=== PATIENT | female | born 1950 | race Caucasian/White ===

== ENCOUNTER 2019-10-16 11:22 | Emergency (ER) | payer OTHER ==
[2019-10-16 12:53] LABS: Albumin 3.8 g/dL (3.4-5.0); Bilirubin Direct 0.1 mg/dL (0-0.2); Bilirubin Total 0.3 mg/dL (0.2-1.0); Potassium 3.7 mmol/L (3.5-5.1); Protein, Total 8.1 g/dL (6.4-8.2)
[2019-10-16 13:00] LABS: Basophils % 1.2 % (0-1.3); Hematocrit 39.1 % (36.0-45.0); Lymphocytes % 15.9 % (15.3-44.8); MPV 7.7 fL (7.6-11.3); RBC Red Blood Cell Count 4.57 M/uL (3.86-4.86)
[2019-10-16 13:11] LABS: Urine Amorphous Sediment 1+ /HPF (NONE SEEN); Urine Bacteria 20-50 /HPF (<20); Urine Culture Reflex Order REFLEXED
[2019-10-16 13:12] LABS: Urine Blood 2+ (NEG); Urine Glucose NEGATIVE (NEG); Urine Protein NEGATIVE (NEG); Urine pH 5.5 (5.0-7.0)
--- NOTE | 2019-10-16 13:28 | RAD REPORT ---
EXAM DESCRIPTION: CT - Chest Abdomen Pelvis W Cont - 10/16/2019 1:15 pm CLINICAL HISTORY: Chest and abdomen pain. smoker, weight loss, sob COMPARISON: No comparisons TECHNIQUE: Approximately 100 mL nonionic IV contrast was administered to the patient. All CT scans are performed using dose optimization technique as appropriate and may include automated exposure control or mA/KV adjustment according to patient size. FINDINGS: Multiple spiculated nodules are present bilaterally throughout the lungs, likely metastati c in etiology. Emphysematous changes are present. The largest nodule noted is in the left base measur ing 21 x 18 mm.No pleural or pericardial effusion.No intrathoracic adenopathy. The liver contains several low-density lesions, the largest in the anterior right lobe liver measurin g 14 mm, most likely representing liver metastasis. No intra or extrahepatic biliary tree dilatation. The spleen, pancreas, adrenal glands and kidneys are within normal limits. Irregular circumferential thickening is seen involving measuring up to 15 mm in wall thickness. This has the appearance of an apple-core lesion. 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 The appendix is no t identified as a discrete structure, however, no secondary findings of appendicitis are identified. Pelvic adenopathy is likely present adjacent to the colonic lesion, measuring up to 18 mm in short axis. Moderate lumbar degenerative changes. IMPRESSION: Apple core type lesion suspected involving the rectosigmoid colon most compatible with m alignancy.Followup colonoscopy assessment would be recommended. Hepatic and lung metastatic disease is suspected.
[2019-10-16 14:45] VITALS: TEMP 97.7; O2SAT 100
[2019-10-16 14:46] VITALS: BP 139/73
--- NOTE | 2019-10-16 21:29 | ER ---
Nurse's Notes [facility] Name: Jessa Aranda Age: 69 yrs Sex: Female : 1950 Arrival Date: 10/16/2019 Time: 11:29 Bed 24 Private MD: Diagnosis: Colon cancer, unspecified;Metastatic lesions of liver and lung Presentation: 10/15 11:43 Chief complaint: Patient states: "I started losing weight some time in early May. I ss can't gain wait, but I also haven't lost any more. Every time I do eat, I have a BM right after. I have a BM at least once an hour. It's not solid, but it isn't diarrhea either. The last 4-5 days I have not been able to sleep.". Coronavirus screen: Patient denies a cough. Patient denies shortness of breath or difficulty breathing. Patient denies measured and/or subjective temperature greater than 100.4F prior to today's visit. Patient denies travel on a cruise ship or to a country the [facility] currently lists as an affected area. Patient denies contact with known and/or suspected case of COVID-19. Ebola Screen: Patient denies exposure to infectious person. Patient denies travel to an Ebola-affected area in the 21 days before illness onset. Initial Sepsis Screen: Does the patient have a suspected source of infection? No. Patient's initial sepsis screen is negative. Initial Sepsis Screen: Does the patient meet any 2 criteria? No. Patient's initial sepsis screen is negative. Risk Assessment: Do you want to hurt yourself or someone else? Patient reports no desire to harm self or others. Onset of symptoms was May 2019. 11:43 Method Of Arrival: Ambulatory ss 11:43 Acuity: JAVON 3 ss Historical: - Allergies: 11:49 No Known Allergies; ss - Home Meds: 11:49 None [Active]; ss - PMHx: 11:49 None; ss - PSHx: 11:49 partial hysterectomy; ss - Immunization history:: Adult Immunizations up to date. - Social history:: Smoking status: Patient reports the use of cigarette tobacco products, smokes one pack cigarettes per day. - Family history:: not pertinent. - Hospitalizations: : No recent hospitalization is reported. Screenin:33 Abuse screen: Denies threats or abuse. Nutritional screening: No deficits noted. ah Tuberculosis screening: No symptoms or risk factors identified. Fall Risk None identified. Assessment: 12:03 General: Appears in no apparent distress. Behavior is calm, cooperative, appropriate ah for age. Pain: Denies pain. 12:03 Neuro: Level of Consciousness is awake, alert, obeys commands, Oriented to person, ah place, time, situation, Appropriate for age. 12:03 Cardiovascular: Denies chest pain, Heart tones S1 S2 present Capillary refill < 3 ah seconds Patient's skin is warm and dry. Pulses are palpable in right radial artery and left radial artery. Respiratory: Airway is patent Respiratory effort is even, unlabored, Respiratory pattern is regular, symmetrical. GI: Bowel sounds present X 4 quads. Abd is soft Abd is non tender X 4 quads Reports weight loss. Derm: Skin is intact, is healthy with good turgor, Skin is dry. 13:00 Reassessment: Patient and/or family updated on plan of care and expected duration. Pain ah level reassessed. Patient is alert, oriented x 3, equal unlabored respirations, skin warm/dry/pink. Awaiting resutls. No needs voiced. 14:10 Reassessment: Discharge instructions given at this time. Pt voiced understanding. Vital Signs: 11:43 BP 142 / 91; Pulse 96; Resp 16; Temp 98.3(TE); Pulse Ox 98% on R/A; Weight 37.01 kg ss (R); Pain 0/10; 12:28 BP 127 / 91; Pulse 76; Resp 16; Temp 97.7(O); Pulse Ox 100% on R/A; mh5 13:25 BP 139 / 73; Pulse 89; Resp 16; Temp 97.7(O); Pulse Ox 100% on R/A; mh5 ED Course: 11:29 Patient arrived in ED. mr 11:48 Triage completed. ss 11:49 Arm band placed on right wrist. ss 11:51 Osmin Gaines MD is Attending Physician. rn 12:01 Kayla Mercado, AIDA is Primary Nurse. 12:23 Initial lab(s) drawn, by nm, sent to lab. Urine collected: clean catch specimen, clear, mh5 Amount Voided: 240mL. Inserted saline lock: 20 gauge in right antecubital area, using aseptic technique. Blood collected. 12:24 Patient has correct armband on for positive identification. Placed in gown. Bed in low mh5 position. Call light in reach. Side rails up X 1. Warm blanket given. Pulse ox on. NIBP on. 12:25 Urine Microscopic Only Sent. 5 12:25 Basic Metabolic Panel Sent. [facility] 12:25 CBC with Diff [address]. [facility] 12:25 [address] [facility] 12:[address] [facility] 13:15 CT Chest, Abdomen, Pelvis - W/Contrast In Process Unspecified. EDDE 13:43 Mason Cleary MD is Referral Physician. rn 14:13 No provider procedures requiring assistance completed. IV discontinued, intact, bleeding controlled, No redness/swelling at site. Pressure dressing applied. Administered Medications: No medications were administered Outcome: 13:44 Discharge ordered by MD. rn 14:11 Discharged to home ambulatory. 14:11 Condition: good 14:11 Discharge instructions given to patient, Instructed on discharge instructions, follow up and referral plans. Demonstrated understanding of instructions, follow-up care. 14:13 Patient left the ED. Signatures: Dispatcher [employer] EDDE Eligio Wendi gonzales Osmin Gaines MD MD rn Smirch, Shelby, RN RN ss Martinez, Maria [facility] Kayla Mercado, RN RN Corrections: (The following items were deleted from the chart) 13:33 12:03 Neuro: Level of Consciousness is awake, alert, obeys commands, Oriented to person, place, time, situation, Appropriate for age
--- NOTE | 2019-10-16 21:29 | EDPHYS ---
Physician Documentation [facility] Name: Jessa Aranda Age: 69 yrs Sex: Female : 1950 Arrival Date: 10/16/2019 Time: 11:29 Bed 24 Private MD: ED Physician Osmin Gaines HPI: 10/15 12:55 This 69 yrs old Female presents to ER via Ambulatory with complaints of rn Weight loss,lack of sleep. 12:55 Reports weight loss over several months, not intentional, does eat, but frequent rn non-bloody bowel movements, no fever, no known cancer. + smoker, + intermittent sob. . 12:57 Onset: The symptoms/episode began/occurred 4 hour(s) ago. Severity of symptoms: At rn their worst the symptoms were mild in the emergency department the symptoms are unchanged. The patient has not experienced similar symptoms in the past. The patient has not recently seen a physician. Historical: - Allergies: 11:49 No Known Allergies; ss - Home Meds: 11:49 None [Active]; ss - PMHx: 11:49 None; ss - PSHx: 11:49 partial hysterectomy; ss - Immunization history:: Adult Immunizations up to date. - Social history:: Smoking status: Patient reports the use of cigarette tobacco products, smokes one pack cigarettes per day. - Family history:: not pertinent. - Hospitalizations: : No recent hospitalization is reported. ROS: 12:57 Constitutional: Negative for fever, chills, + weight loss Eyes: Negative for injury, rn pain, redness, and discharge, Cardiovascular: Negative for chest pain, palpitations, and edema, Respiratory: + sob Abdomen/GI: Negative for abdominal pain, nausea, vomiting, diarrhea, and constipation, : + non smelly vaginal discharge for 1 month, no itching or pain, no ulcers. MS/Extremity: Negative for injury and deformity, Skin: Negative for injury, rash, and discoloration, Neuro: Negative for headache, numbness, tingling, and seizure. Exam: 12:57 Constitutional: Thin female, cachectic Head/Face: Normocephalic, atraumatic. Eyes: rn Pupils equal round and reactive to light, extra-ocular motions intact. Lids and lashes normal. Conjunctiva and sclera are non-icteric and not injected. Cornea within normal limits. Periorbital areas with no swelling, redness, or edema. Cardiovascular: Regular rate and rhythm. No pulse deficits. Respiratory: No increased work of breathing, no retractions or nasal flaring. Abdomen/GI: soft, non-tender Skin: Warm, dry MS/ Extremity: Pulses equal, no cyanosis. Neurovascular intact. Full, normal range of motion. Equal circumference. Neuro: Awake and alert, GCS 15, oriented to person, place, time, and situation. Cranial nerves II-XII grossly intact. Motor strength 5/5 in all extremities. Sensory grossly intact. Cerebellar exam normal. Normal gait. Vital Signs: 11:43 BP 142 / 91; Pulse 96; Resp 16; Temp 98.3(TE); Pulse Ox 98% on R/A; Weight 37.01 kg ss (R); Pain 0/10; 12:28 BP 127 / 91; Pulse 76; Resp 16; Temp 97.7(O); Pulse Ox 100% on R/A; mh5 13:25 BP 139 / 73; Pulse 89; Resp 16; Temp 97.7(O); Pulse Ox 100% on R/A; mh5 MDM: 11:51 Patient medically screened. rn 13:41 Differential Diagnosis cancer, gastric cancer, colon cancer, lung cancer. Data rn reviewed: vital signs, nurses notes, lab test result(s), radiologic studies, CT scan, and as a result, I will discharge patient. Counseling: I had a detailed discussion with the patient and/or guardian regarding: the historical points, exam findings, and any diagnostic results supporting the discharge/admit diagnosis, lab results, radiology results, the need for outpatient follow up, to return to the emergency department if symptoms worsen or persist or if there are any questions or concerns that arise at home. Special discussion: I discussed with the patient/guardian in detail that at this point there is no indication for admission to the hospital. It is understood, however, that if the symptoms persist or worsen the patient needs to return immediately for re-evaluation. Based on the history and exam findings, there is no indication for further emergent testing or inpatient evaluation. I discussed with the patient/guardian the need to see the eeo officer for further evaluation of the symptoms. I discussed with the patient/guardian the need to see the outsole compressor/oncologist for further evaluation of the symptoms. I discussed with the patient/guardian the need to see the primary care provider for further evaluation of the symptoms. I discussed with the patient/guardian the need to see the asbestos abatement worker for further evaluation of the symptoms. ED course: Had discussion of CT findings with patient, most likely colon cancer, will need to f/u for tissue diagnosis and then with oncology for chemo recommendations. Stable. Had 2 family members with cancer and aware of outpt w/u process. . 10/15 12:00 Order name: Basic Metabolic Panel; Complete Time: : rn 10/15 12:00 Order name: CBC with Diff; Complete Time: : rn 10/15 12:00 Order name: Hepatic Function; Complete Time: : rn 10/15 12:00 Order name: Lipase; Complete Time: : rn 10/15 12:00 Order name: Urine Microscopic Only; Complete Time: : rn 10/15 12:33 Order name: Urine Dipstick--Ancillary (enter results); Complete Time: : pa 10/15 12:00 Order name: IV Saline Lock; Complete Time: 12: rn 10/15 12:00 Order name: Labs collected and sent; Complete Time: 12: rn 10/15 12:00 Order name: CT Chest, Abdomen, Pelvis - W/Contrast; Complete Time: : rn 10/15 12:00 Order name: Urine Dipstick-Ancillary (obtain specimen); Complete Time: 12: rn 10/15 13:13 Order name: Urine Culture EDMS Administered Medications: No medications were administered Disposition: 10/16/19 13:44 Discharged to Home. Impression: Colon cancer, unspecified, Metastatic lesions of liver and lung. - Condition is Stable. - Discharge Instructions: Colonoscopy, Lung Cancer, Colon Mass, Adult, Liver Cancer. - Medication Reconciliation Form, Thank You Letter, Antibiotic Education, Prescription Opioid Use form. - Follow up: Mason Cleary MD; When: As needed; Reason: Recheck today's complaints, Re-evaluation by your physician. - Problem is an ongoing problem. - Symptoms are unchanged. Signatures: Dispatcher [employer] EDMS Osmin Gaines MD MD rn Smirch, Shelby, RN RN ss Harris, Amy, RN RN Corrections: (The following items were deleted from the chart) 14:13 13:44 10/16/2019 13:44 Discharged to Home. Impression: Colon cancer, unspecified; ah Metastatic lesions of liver and lung. Condition is Stable. Forms are Medication Reconciliation Form, Thank You Letter, Antibiotic Education, Prescription Opioid Use. Follow up: Mason Cleary; When: As needed; Reason: Recheck today's complaints, Re-evaluation by your physician. Problem is an ongoing problem. Symptoms are unchanged. rn
== END 2019-10-16 14:13 | disposition home or self-care (01) ==
LOC: ER 11:22
DX: C78.7 Secondary malignant neoplasm of liver and intrahepatic bile duct (principal); C78.00 Secondary malignant neoplasm of unspecified lung; F17.210 Nicotine dependence, cigarettes, uncomplicated
CPT/HCPCS: 87088; 85025; 87086; 80048; 36415; 80076; 83690; 71260; 74177; Q9967; 81003; 81015; 99284

== ENCOUNTER 2020-02-08 11:41 | Observation (INO) | payer OTHER ==
--- OUTSIDE RECORDS SUMMARY | 2020-02-08 11:48 | XMS REPORT | Continuity of Care Document ---
:1950 Author Organization [facility] t Address [address] [place] [address] Care Team Providers Name Role Phone Dean Sanchez Attending Clinician Unavailable Sanchez, C Attending Clinician Unavailable Rice, P Attending Clinician Unavailable Rice, P Attending Clinician Unavailable Afuwape, O Attending Clinician Unavailable Afuwape, O Attending Clinician Unavailable Avila, J Attending Clinician Unavailable Avila, J Attending Clinician Unavailable Marck, P Attending Clinician Unavailable Marck, P Attending Clinician Unavailable Sanchez, C Admitting Clinician Unavailable Rice, P Admitting Clinician Unavailable Afuwape, O Admitting Clinician Unavailable Avila, J Admitting Clinician Unavailable Marck, P Admitting Clinician Unavailable Payers Payer Name Policy Type Policy Number Effective Date Expiration Date S ource Problems This patient has no known problems. Allergies, Adverse Reactions, Alerts Allergy Allergy Status Severity Reaction(s) Onset Inactive Treating Comm ents Source Name Type Date Date Clinician No Known DA Active U [facility] All[facility]ie 11-06 [place] s 00:00: d 00 [facility] Medications This patient has no known medications. Procedures This patient has no known procedures. Encounters Start End Encounter Admission Attending Care Care Encounter Source Date/Time Date/Time Type Type Clinicians Facility Department ID 2019-12-15 2020-01-17 Unknown 3 Sanchez, [place] [facility] R[id number] 13:13:00 11:03:00 [facility] [place] [facility] 2019-12-21 2019-12-21 Outpatient 3 Bethel Rice [facility] MRI [id number] St. 12:16:00 23:59:00 Rice, [facility] 2019-12-14 2019-12-14 Outpatient 3 Dwayne [facility] [id number] St. 10:15:00 23:59:00 Dwayne [facility] 2019-12-11 2019-12-11 Emergency 1 Catalina [facility] JACKIE [id number] St. 12:49:00 15:38:00 Afpenny [facility] 2019-12-11 2019-12-11 Emergency Afuwnanci [facility] JACKIE [id number] St. 12:49:00 12:49:00 [place] [id number] [facility] 2019-12-11 2019-12-11 Emergency 1 [place] [facility] JACKIE [id number] St. 12:29:00 12:48:00 [facility] 2019-12-08 2019-12-09 Inpatient 3 Tawanda Avila [facility] MED [id number] St. 07:35:00 21:01:00 [facility] 2019-12-08 2019-12-08 Inpatient 3 AvilaCapri ramosrick [facility] MED [id number] St. 07:35:00 07:35:00 Austin Tawanda 2019 917 [facility] 2019-11-29 2019-11-29 Outpatient 3 Dwayne [facility] IVR [id number] St. 07:46:00 23:59:00 Dwayne [facility] 2019-11-29 2019-11-29 Outpatient 3 Dwayne [facility] IVR [id number] St. 07:46:00 07:46:00 Dwayne [facility]2019 908 [facility] 2019-11-13 2019-11-13 Outpatient 3 Marck Acharya [facility] ENDO [id number] St. 07:56:00 12:24:00 Marck Acharya [facility] 2019-11-13 2019-11-13 Outpatient 3 Marck Acharya [facility] ENDO [id number] St. 07:56:00 07:56:00 Marck Acharya20 [id number] [facility] Results Test Description Test Time Test Comments Results Result Sour e Comments MRI Brain w/ + w/o 2019-12-21 Patient: ELOISA, Contrast 14:31:46 CHRISTIANA Date/Time12/21/2019 13:38 CDTReason for ExamC79.51ReportEXAM: MRI BRAIN WITH AND WITHOUT CONTRASTINDICATION: C79.51, history of colon cancerCOMPARISON: PET/CT dated December 14, 2019TECHNIQUE: Multiplanar, multisequence MR imaging of the brain was obtained with and without administration of intravenous contrast. IV contrast: 8 cc of MultiHanceFINDINGS:No restricted diffusion to suggest acute ischemia.There is an enhancing lesion within the posterior left frontal lobe measuring 1.3 x 1.3 x 1.2 cm with significant surrounding vasogenic edema and effacement of the sulci. No additional enhancing lesions are identified.No ventriculomegaly or midline shift is identified. The basal cisterns are patent. The posterior fossa and fourth ventricle are normal. No intracranial hemorrhage.Intracrania l flow voids are normal.The paranasal sinuses and mastoid air cells are clear. The skull base is intact. No calvarial lesions. The orbits and globes are unremarkable.IMPRESSIO N:1. Enhancing lesion within the posterior left frontal lobe just superior to the corpus callosum measuring 1.3 x 1.3 x 1.2 cm with surrounding vasogenic edema. This is consistent with metastatic disease. No additional enhancing lesions are identified.LOCATION: R16 Final Dictated by: MD Gaines Melanie CDictated DT/TM: 12/21/2019 2:24 pmSigned by: MD Gaines Melanie CSigned (Electronic Signature): 12/21/2019 2:[address] Skull Base 2019-12-15 Patient: ELOISA, to Midthi 10:06:11 CHRISTIANA Date/Time12/14/2019 13:13 CDTReason for ExamC18.9ReportDICTATI ON LOCATION: R 16EXAM: PET CT SKULL BASE TO MIDTHIGHCLINICAL INDICATION: Colon cancerTECHNICAL INFORMATION: The study was performed using in-line PET/CT imaging from vertex to the lower thigh. Cross-sectional as well as 3-D images of the PET data and cross-sectional, images of the CT data were generated with coregistration of the 2 image sets. The images were displayed with and without attenuation correction. CT imaging was employed for attenuation correction and anatomic location of PET/CT abnormalities. A diagnostic CT with contrast agents was not performed.Serum glucose level: 108 mg/dL.Radiopharmaceuti janene dose: 15.52 mCi of fluorine 18 labeled FDGCOMPARISON STUDIES: Result of CT abdomen and pelvis dated 10/16/2019 reviewed.FINDINGS:Head and Neck:* 1.3 cm focus of intense activity at the medial high left frontal lobe (PET series 102 image 14, CT series 3 image 10), SUV max 10.6. This corresponds to a faintly defined hypodense mass with surrounding vasogenic edema on CT.* No evidence of lymphadenopathy in the neck.Chest:* Innumerable bilateral FDG avid pulmonary nodules.* Largest nodules include 1.6 cm nodule, superior left lower lobe (series 3 image 113), SUV max 4.67.* 2.1 cm nodule, left lung base (series 3 image 119), SUV max 4.52 .* Somewhat cavitary, spiculated nodule in the right middle lobe, 1.4 cm (series 3 image 106), SUV max 2.59.* 1.5 cm spiculated nodule adjacent to vessel, medial right lower lobe (series 3 image 115), SUV max 3.3.* Adjacent to it 1.2 cm nodule, SUV max 3.2* Numerous other subcentimeter pulmonary nodules are seen in the right lobe on series 3 images 86, 89, 91 (2 lesions), 96, 97, 100 (2 lesions), 103, 107, 108 113, 115, 117, 119, 124 128 (multiple lesions). Other tiny 1 to 3 mm nodules, not marked.* Numerous lesions in the left lower seen on series 3 images 81, 84, 86, 87, 90, 92, 96, 98 (3 lesions), one or 2 104, 112, 114, 119 (lingula), 122, 123, 126). Other tiny 1 to 3 mm nodules, not marked.* No pleural effusions.* Moderate underlying centrilobular emphysema.* No evidence of hilar or mediastinal lymphadenopathy.* Right chest port tip is at cavoatrial junction.* Heart size is normal with no pericardial effusion. Coronary calcifications are seen.Abdomen/Pelvis* 12 mm lesion, liver dome (series 3 image 128). SUV max 11.07.* Adjacent lesion liver dome measuring approximately 1.5 cm on PET, SUV max 5.46 (fused axonal image 51)* Approximately 2.5 cm lesion in segment 4, SUV max 14.5.* Adjacent lesion measuring approximately 2.5 cm, SUV max 7.7 (fused axial image 54).* Lesion near the caudate lobe measuring approximately 1.5 cm, SUV max 5.4. (Fused axial image 55).Exam Date/Time12/14/2019 13:13 CDTReport* 9 mm lesion, right lobe near the tip, segment 6, SUV max 5.77 (series 3 image 147;. Axial image 57).* Intense activity involving the circumferential rectal mass, SUV max 12.03 (diffuse axial image 76, axial CT images 189-196).* Left lower quadrant ostomy is noted. Moderate diffuse activity around the ostomy, SUV max 3.5, likely inflammatory. Large amount of retained stool throughout the residual colon. No dilated bowel loops to suggest obstruction.* There is residual soft tissue gas along the abdominal wall, muscle/fascial planes, compatible with postsurgical changes.* No evidence of ascites.* Moderate diffuse activity involving the distal gastric body/antrum with appearance of mild mural thickening, SUV max 7.88 (series axial image 62, CT axial imaging is 156/160). Nonspecific.* Intense activity adjacent to the bladder, within left hemipelvis (see series axial image 79, CT image 202), unclear if this represents urine uptake within left ureter versus focal lesion in the left hemipelvis not seen on CT.Musculoskeletal:* No abnormal metabolic activity is seen in the bones or soft tissues.* No aggressive appearing osseous lesions in bone.IMPRESSION:1. Brain metastasis, high left frontal lobe, intense activity. SUV max 10.6. Correlation on MRI brain with and without contrast.2. Innumerable bilateral pulmonary nodules, largest 2.1 cm, SUV max 4.52.3. Numerous liver metastasis, at least 6 identified, largest ultimately 2.5 cm, SUV max 14.5. 4 rectal primary with intense activity, conventional mass, SUV max 12.03.4. Diverting ostomy. No obstruction currently. No ascites.5.. Nonspecific diffuse distal gastric body/antral uptake. To be monitored.6. Intense activity adjacent to the bladder, within left hemipelvis (see series axial image 79, CT image 202), unclear if this represents urine uptake within left ureter versus focal lesion in the left hemipelvis, not seen on CT. Attention to this area on follow-up.Case reported to Dr. Rice at 9:40 AM on 12/15/2019. Final Dictated by: MD Mahsa, Tania FDictated DT/TM: 12/14/2019 1:23 pmSigned by: MD Mahsa, Tania FSigned (Electronic Signature): 12/15/2019 10:06 am POC Glucose 2019-12-14 11:02:06 Test Item Value Reference Range Interpretation Comme nts Glucose POC (test code = 108 mg/dL 70-115 If you consider your patient Glucose POC) critically ill, the Leatha-Accu Check Infrom II meter should not be used for Glucose det ermination. Draw a venous Glucose and send to the main Lab for analysi s. Basic Metabolic [id number] 21:32:32 Test Item Value Reference Range Interpretation Comments Sodium Level (test code = Sodium 133.0 mmol/L 136.0-145.0 L Level) Potassium Level (test code = 4.70 mmol/L 3.50-5.10 Potassium Level) Chloride Level (test code = 101.0 mmol/L 98.0-107.0 Chloride Level) CO2 (test code = CO2) 19 mmol/L 20-31 L Anion Gap (test code = Anion 12.7 mmol/L 5.0-15.0 Gap) BUN (test code = BUN) 11 mg/dL 9-23 Creatinine Level (test code = 0.69 mg/dL 0.70-1.30 L Creatinine Level) BUN/Creat Ratio (test code = 15.9 ratio 10.0-20.0 BUN/Creat Ratio) Glucose Level (test code = 114 mg/dL 74-106 H Glucose Level) Calcium Level (test code = 8.3 mg/dL 8.3-10.6 Calcium Level) Hemolysis (test code = 0 mg/dL 8-11 Hemolysis) Icterus (test code = Icterus) 0 mg/dL 8-11 Lipemia (test code = Lipemia) 0 mg/dL 8-11 Basic Metabolic [id number] 21:32:32 Test Item Value Reference Range Interpretation Comments Sodium Level (test 133.0 mmol/L 136.0-145.0 L code = Sodium Level) Potassium Level 4.70 mmol/L 3.50-5.10 (test code = Potassium Level) Chloride Level (test 101.0 mmol/L 98.0-107.0 code = Chloride Level) CO2 (test code = 19 mmol/L 20-31 L CO2) Anion Gap (test code 12.7 mmol/L 5.0-15.0 = Anion Gap) BUN (test code = 11 mg/dL 9-23 BUN) Creatinine Level 0.69 mg/dL 0.70-1.30 L (test code = Creatinine Level) BUN/Creat Ratio 15.9 ratio 10.0-20.0 (test code = BUN/Creat Ratio) Glucose Level (test 114 mg/dL 74-106 H code = Glucose Level) Calcium Level (test 8.3 mg/dL 8.3-10.6 code = Calcium Level) eGFR AA (test code = >60 >=60 eGFR (e stimated eGFR AA) mL/min/1.73 m2 Glomerular Filtration Rate ) is an estimated va lue, calculated from the patient's serum creatinine usin g the MDRD equation. It is NOT the patient 's actual GFR. The eGFR provides a more clinically usef ul measure of kidn ey disease than se rum creatinine alone.This calculation radha es sex and race in to account, if the information is provided. If th e race is not provided, and t he patient is -Johanna n, multiply by 1.2 12. If sex is not provided, and t he patient is fema le, multiply by 0.7 42. Results for pat ients <18 years of ag e have not been validated by th e MDRD study and should be interpreted wit h caution. eGFR R esult Interpretation: eGFR > or = 60 is in the Normal RangeeGF R < 60 may mean kid lorin diseaseeGFR < 1 5 may mean kidney failure Rang es recommended by the National Kidney Foundation, http://nkdep.ni h.gov eGFR Non-AA (test >60.00 >=60.00 eGFR (nataly mated code = eGFR Non-AA) mL/min/1.73 m2 Glomer ular Filtration Rate ) is an estimated va lue, calculated from the patient's serum creatinine usin g the MDRD equation. It is NOT the patient 's actual GFR. The eGFR provides a more clinically usef ul measure of kidn ey disease than se rum creatinine alone.This calculation radha es sex and race in to account, if the information is provided. If th e race is not provided, and t he patient is -Johanna n, multiply by 1.2 12. If sex is not provided, and t he patient is fema le, multiply by 0.7 42. Results for pat ients <18 years of ag e have not been validated by th e MDRD study and should be interpreted wit h caution. eGFR R esult Interpretation: eGFR > or = 60 is in the Normal RangeeGF R < 60 may mean kid lorin diseaseeGFR < 1 5 may mean kidney failure Rang es recommended by the National Kidney Foundation, http://nkdep.ni h.gov Hemolysis (test code 0 mg/dL 8-11 = Hemolysis) Icterus (test code = 0 mg/dL 8-11 Icterus) Lipemia (test code = 0 mg/dL 8-11 Lipemia) Basic Metabolic [id number] 21:32:32 Test Item Value Reference Range Interpretation Comments Sodium Level (test 133.0 mmol/L 136.0-145.0 L code = Sodium Level) Potassium Level 4.70 mmol/L 3.50-5.10 (test code = Potassium Level) Chloride Level (test 101.0 mmol/L 98.0-107.0 code = Chloride Level) CO2 (test code = 19 mmol/L 20-31 L CO2) Anion Gap (test code 12.7 mmol/L 5.0-15.0 = Anion Gap) BUN (test code = 11 mg/dL 9-23 BUN) Creatinine Level 0.69 mg/dL 0.70-1.30 L (test code = Creatinine Level) BUN/Creat Ratio 15.9 ratio 10.0-20.0 (test code = BUN/Creat Ratio) Glucose Level (test 114 mg/dL 74-106 H code = Glucose Level) Calcium Level (test 8.3 mg/dL 8.3-10.6 code = Calcium Level) eGFR AA (test code = >60 >=60 eGFR (e stimated eGFR AA) mL/min/1.73 m2 Glomerular Filtration Rate ) is an estimated va lue, calculated from the patient's serum creatinine usin g the MDRD equation. It is NOT the patient 's actual GFR. The eGFR provides a more clinically usef ul measure of kidn ey disease than se rum creatinine alone.This calculation radha es sex and race in to account, if the information is provided. If th e race is not provided, and t he patient is -Johanna n, multiply by 1.2 12. If sex is not provided, and t he patient is fema le, multiply by 0.7 42. Results for pat ients <18 years of ag e have not been validated by [facility] MDRD study and should be interpreted wit h caution. eGFR R esult Interpretation: eGFR > or = 60 is in the Normal RangeeGF R < 60 may mean kid lorin diseaseeGFR < 1 5 may mean kidney failure Rang es recommended by the National Kidney Foundation, http://nkdep.ni h.gov eGFR Non-AA (test >60.00 >=60.00 eGFR (nataly mated code = eGFR Non-AA) mL/min/1.73 m2 Glomer ular Filtration Rate ) is an estimated va lue, calculated from the patient's serum creatinine usin g the MDRD equation. It is NOT the patient 's actual GFR. The eGFR provides a more clinically usef ul measure of kidn ey disease than se rum creatinine alone.This calculation radha es sex and race in to account, if the information is provided. If th e race is not provided, and t he patient is -Johanna n, multiply by 1.2 12. If sex is not provided, and t he patient is fema le, multiply by 0.7 42. Results for pat ients <18 years of ag e have not been validated by [facility] MDRD study and should be interpreted wit h caution. eGFR R esult Interpretation: eGFR > or = 60 is in the Normal RangeeGF R < 60 may mean kid lorin diseaseeGFR < 1 5 may mean kidney failure Rang es recommended by the National Kidney Foundation, http://nkdep.ni h.gov Hemolysis (test code 0 mg/dL 8-11 = Hemolysis) Icterus (test code = 0 mg/dL 8-11 Icterus) Lipemia (test code = 0 mg/dL 8-11 Lipemia) Basic Metabolic [id number] 21:32:32 Test Item Value Reference Range Interpretation Comments Sodium Level (test 133.0 mmol/L 136.0-145.0 L code = Sodium Level) Potassium Level 4.70 mmol/L 3.50-5.10 (test code = Potassium Level) Chloride Level (test 101.0 mmol/L 98.0-107.0 code = Chloride Level) CO2 (test code = 19 mmol/L 20-31 L CO2) Anion Gap (test code 12.7 mmol/L 5.0-15.0 = Anion Gap) BUN (test code = 11 mg/dL 9-23 BUN) Creatinine Level 0.69 mg/dL 0.55-1.02 Reference r sarah (test code = changed due to Creatinine Level) change in patient's sex at 0 10:20:59. Norm al Low changed fro m 0.70 to 0.55. Normal High dante nged from 1.30 to 1. 02. Result flag dante nged from L to withi n range. BUN/Creat Ratio 15.9 ratio 10.0-20.0 (test code = BUN/Creat Ratio) Glucose Level (test 114 mg/dL 74-106 H code = Glucose Level) Calcium Level (test 8.3 mg/dL 8.3-10.6 code = Calcium Level) eGFR AA (test code = >60 >=60 eGFR (e stimated eGFR AA) mL/min/1.73 m2 Glomerular Filtration Rate ) is an estimated va lue, calculated from the patient's serum creatinine usin g the MDRD equation. It is NOT the patient 's actual GFR. The eGFR provides a more clinically usef ul measure of kidn ey disease than se rum creatinine alone.This calculation radha es sex and race in to account, if the information is provided. If th e race is not provided, and t he patient is -Johanna n, multiply by 1.2 12. If sex is not provided, and t he patient is fema le, multiply by 0.7 42. Results for pat ients <18 years of ag e have not been validated by [facility] MDRD study and should be interpreted wit h caution. eGFR R esult Interpretation: eGFR > or = 60 is in the Normal RangeeGF R < 60 may mean kid lorin diseaseeGFR < 1 5 may mean kidney failure Rang es recommended by the National Kidney Foundation, http://nkdep.ni h.gov eGFR Non-AA (test >60.00 >=60.00 eGFR (nataly mated code = eGFR Non-AA) mL/min/1.73 m2 Glomer ular Filtration Rate ) is an estimated va lue, calculated from the patient's serum creatinine usin g the MDRD equation. It is NOT the patient 's actual GFR. The eGFR provides a more clinically usef ul measure of kidn ey disease than se rum creatinine alone.This calculation radha es sex and race in to account, if the information is provided. If e race is not provided, and t he patient is -Johanna n, multiply by 1.2 12. If sex is not provided, and t he patient is fema le, multiply by 0.7 42. Results for pat ients <18 years of ag e have not been validated by [facility] MDRD study and should be interpreted wit h caution. eGFR R esult Interpretation: eGFR > or = 60 is in the Normal RangeeGF R < 60 may mean kid lorin diseaseeGFR < 1 5 may mean kidney failure Rang es recommended by the National Kidney Foundation, http://nkdep.ni h.gov Hemolysis (test code 0 mg/dL N Referen ce range = Hemolysis) changed due to change in patie nt's sex at 0 10:20:59. Norm al Low changed fro m 8 to not defined. Normal High dante nged from 11 to not defined. Resul t flag changed fr om within range to not applied. Criti janene flag changed du e to change of sex a t 10:20 :59. Critical flag changed from wi thin range to not applied. Icterus (test code = 0 mg/dL N Referen ce range Icterus) changed due to change in patie nt's sex at 0 10:20:59. Norm al Low changed fro m 8 to not defined. Normal High dante nged from 11 to not defined. Resul t flag changed fr om within range to not applied. Criti janene flag changed du e to change of sex a t 10:20 :59. Critical flag changed from wi thin range to not applied. Lipemia (test code = 0 mg/dL N Referen ce range Lipemia) changed due to change in patie nt's sex at 0 10:20:59. Norm al Low changed fro m 8 to not defined. Normal High dante nged from 11 to not defined. Resul t flag changed fr om within range to not applied. Criti janene flag changed du e to change of sex a t 10:20 :59. Critical flag changed from wi thin range to not applied. POC [id number] 18:16:28 Test Item Value Reference Range Interpretation Comments Glucose POC (test 141 mg/dL 70-115 H If you con check pilot your code = Glucose POC) patient critically ill, the Leatha-Accu Check Infrom II meter should not be used for Glucose determination. Draw a venous Glucose and send to the main Lab for analysis. Basic Metabolic [id number] 17:32:18 Test Item Value Reference Range Interpretation Comments Sodium Level (test 129.0 mmol/L 136.0-145.0 L code = Sodium Level) Potassium Level (test 6.10 mmol/L 3.50-5.10 Critic al results code = Potassium called to Allison Christiansen Level) at 12/09/2019 17:32:12 CDT_ b y jv_. Read back and verified? _yes Chloride Level (test 100.0 mmol/L 98.0-107.0 code = Chloride Level) CO2 (test code = CO2) 27 mmol/L 20-31 Anion Gap (test code = 1.8 mmol/L 5.0-15.0 L Anion Gap) BUN (test code = BUN) 11 mg/dL 9-23 Creatinine Level (test 0.79 mg/dL 0.70-1.30 code = Creatinine Level) BUN/Creat Ratio (test 13.9 ratio 10.0-20.0 code = BUN/Creat Ratio) Glucose Level (test 438 mg/dL 74-106 Critical results code = Glucose Level) called to Zamzam Christiansen at 12/09/2019 17:32:12 CDT_ b y jv_. Read back and verified? _yes Calcium Level (test 7.6 mg/dL 8.3-10.6 L code = Calcium Level) Hemolysis (test code = 0 mg/dL 8-11 L Hemolysis) Icterus (test code = 0 mg/dL 8-11 L Icterus) Lipemia (test code = 0 mg/dL 8-11 L Lipemia) Basic Metabolic [id number] 17:32:18 Test Item Value Reference Range Interpretation Comments Sodium Level (test 129.0 mmol/L 136.0-145.0 L code = Sodium Level) Potassium Level 6.10 mmol/L 3.50-5.10 Critical res ults (test code = called to Zamzam benson Potassium Level) at 0 17:32:12 CDT_ b y jv_. Read back and verified? _yes Chloride Level (test 100.0 mmol/L 98.0-107.0 code = Chloride Level) CO2 (test code = 27 mmol/L 20-31 CO2) Anion Gap (test code 1.8 mmol/L 5.0-15.0 L = Anion Gap) BUN (test code = 11 mg/dL 9-23 BUN) Creatinine Level 0.79 mg/dL 0.70-1.30 (test code = Creatinine Level) BUN/Creat Ratio 13.9 ratio 10.0-20.0 (test code = BUN/Creat Ratio) Glucose Level (test 438 mg/dL 74-106 Critical results code = Glucose called to Zamzam Christiansen Level) at 12/09/2019 17:32:12 CDT_ b y jv_. Read back and verified? _yes Calcium Level (test 7.6 mg/dL 8.3-10.6 L code = Calcium Level) eGFR AA (test code = >60 >=60 eGFR (e stimated eGFR AA) mL/min/1.73 m2 Glomerular Filtration Rate ) is an estimated va lue, calculated from the patient's serum creatinine usin g the MDRD equation. It is NOT the patient 's actual GFR. The eGFR provides a more clinically usef ul measure of kidn ey disease than se rum creatinine alone.This calculation radha es sex and race in to account, if the information is provided. If th e race is not provided, and t he patient is -Johanna n, multiply by 1.2 12. If sex is not provided, and t he patient is fema le, multiply by 0.7 42. Results for pat ients <18 years of ag e have not been validated by [facility] MDRD study and should be interpreted wit h caution. eGFR R esult Interpretation: eGFR > or = 60 is in the Normal RangeeGF R < 60 may mean kid lorin diseaseeGFR < 1 5 may mean kidney failure Rang es recommended by the National Kidney Foundation, http://nkdep.ni h.gov eGFR Non-AA (test >60.00 >=60.00 eGFR (nataly mated code = eGFR Non-AA) mL/min/1.73 m2 Glomer ular Filtration Rate ) is an estimated va lue, calculated from the patient's serum creatinine usin g the MDRD equation. It is NOT the patient 's actual GFR. The eGFR provides a more clinically usef ul measure of kidn ey disease than se rum creatinine alone.This calculation radha es sex and race in to account, if the information is provided. If th e race is not provided, and t he patient is -Johanna n, multiply by 1.2 12. If sex is not provided, and t he patient is fema le, multiply by 0.7 42. Results for pat ients <18 years of ag e have not been validated by [facility] MDRD study and should be interpreted wit h caution. eGFR R esult Interpretation: eGFR > or = 60 is in the Normal RangeeGF R < 60 may mean kid lorin diseaseeGFR < 1 5 may mean kidney failure Rang es recommended by the National Kid[employer] Foundation, http://nkdep.ni h.gov Hemolysis (test code 0 mg/dL 8-11 L = Hemolysis) Icterus (test code = 0 mg/dL 8-11 L Icterus) Lipemia (test code = 0 mg/dL 8-11 L Lipemia) Basic Metabolic [id number] 17:32:18 Test Item Value Reference Range Interpretation Comments Sodium Level (test 129.0 mmol/L 136.0-145.0 L code = Sodium Level) Potassium Level 6.10 mmol/L 3.50-5.10 Critical res ults (test code = called to Zamzam benson Potassium Level) at 0 17:32:12 CDT_ b y jv_. Read back and verified? _yes Chloride Level (test 100.0 mmol/L 98.0-107.0 code = Chloride Level) CO2 (test code = 27 mmol/L 20-31 CO2) Anion Gap (test code 1.8 mmol/L 5.0-15.0 L = Anion Gap) BUN (test code = 11 mg/dL 9-23 BUN) Creatinine Level 0.79 mg/dL 0.70-1.30 (test code = Creatinine Level) BUN/Creat Ratio 13.9 ratio 10.0-20.0 (test code = BUN/Creat Ratio) Glucose Level (test 438 mg/dL 74-106 Critical results code = Glucose called to Zamzam Christiansen Level) at 12/09/2019 17:32:12 CDT_ b y jv_. Read back and verified? _yes Calcium Level (test 7.6 mg/dL 8.3-10.6 L code = Calcium Level) eGFR AA (test code = >60 >=60 eGFR (e stimated eGFR AA) mL/min/1.73 m2 Glomerular Filtration Rate ) is an estimated va lue, calculated from the patient's serum creatinine usin g the MDRD equation. It is NOT the patient 's actual GFR. The eGFR provides a more clinically usef ul measure of kidn ey disease than se rum creatinine alone.This calculation radha es sex and race in to account, if the information is provided. If th e race is not provided, and t he patient is -Johanna n, multiply by 1.2 12. If sex is not provided, and t he patient is fema le, multiply by 0.7 42. Results for pat ients <18 years of ag e have not been validated by th e MDRD study and should be interpreted wit h caution. eGFR R esult Interpretation: eGFR > or = 60 is in the Normal RangeeGF R < 60 may mean kid lorin diseaseeGFR < 1 5 may mean kidney failure Rang es recommended by the National Kidney Foundation, http://nkdep.ni h.gov eGFR Non-AA (test >60.00 >=60.00 eGFR (nataly mated code = eGFR Non-AA) mL/min/1.73 m2 Glomer ular Filtration Rate ) is an estimated va lue, calculated from the patient's serum creatinine usin g the MDRD equation. It is NOT the patient 's actual GFR. The eGFR provides a more clinically usef ul measure of kidn ey disease than se rum creatinine alone.This calculation radha es sex and race in to account, if the information is provided. If th e race is not provided, and t he patient is -Johanna n, multiply by 1.2 12. If sex is not provided, and t he patient is fema le, multiply by 0.7 42. Results for pat ients <18 years of ag e have not been validated by th e MDRD study and should be interpreted wit h caution. eGFR R esult Interpretation: eGFR > or = 60 is in the Normal RangeeGF R < 60 may mean kid lorin diseaseeGFR < 1 5 may mean kidney failure Rang es recommended by the National Kidney Foundation, http://nkdep.ni h.gov Hemolysis (test code 0 mg/dL 8-11 L = Hemolysis) Icterus (test code = 0 mg/dL 8-11 L Icterus) Lipemia (test code = 0 mg/dL 8-11 L Lipemia) Basic Metabolic [id number] 17:32:18 Test Item Value Reference Range Interpretation Comments Sodium Level (test 129.0 mmol/L 136.0-145.0 L code = Sodium Level) Potassium Level 6.10 mmol/L 3.50-5.10 Critical res ults (test code = called to Zamzam benson Potassium Level) at 0 17:32:12 CDT_ b y jv_. Read back and verified? _yes Chloride Level (test 100.0 mmol/L 98.0-107.0 code = Chloride Level) CO2 (test code = 27 mmol/L 20-31 CO2) Anion Gap (test code 1.8 mmol/L 5.0-15.0 L = Anion Gap) BUN (test code = 11 mg/dL 9-23 BUN) Creatinine Level 0.79 mg/dL 0.55-1.02 Reference r sarah (test code = changed due to Creatinine Level) change in patient's sex at 0 10:21:00. Norm al Low changed fro m 0.70 to 0.55. Normal High dante nged from 1.30 to 1. 02. Result flag not changed. BUN/Creat Ratio 13.9 ratio 10.0-20.0 (test code = BUN/Creat Ratio) Glucose Level (test 438 mg/dL 74-106 Critical results code = Glucose called to Zamzam Christiansen Level) at 12/09/2019 17:32:12 CDT_ b y jv_. Read back and verified? _yes Calcium Level (test 7.6 mg/dL 8.3-10.6 L code = Calcium Level) eGFR AA (test code = >60 >=60 eGFR (e stimated eGFR AA) mL/min/1.73 m2 Glomerular Filtration Rate ) is an estimated va lue, calculated from the patient's serum creatinine usin g the MDRD equation. It is NOT the patient 's actual GFR. The eGFR provides a more clinically usef ul measure of kidn ey disease than se rum creatinine alone.This calculation radha es sex and race in to account, if the information is provided. If th e race is not provided, and t he patient is -Johanna n, multiply by 1.2 12. If sex is not provided, and t he patient is fema le, multiply by 0.7 42. Results for pat ients <18 years of ag e have not been validated by th e MDRD study and should be interpreted wit h caution. eGFR R esult Interpretation: eGFR > or = 60 is in the Normal RangeeGF R < 60 may mean kid lorin diseaseeGFR < 1 5 may mean kidney failure Rang es recommended by the National Kidney Foundation, http://nkdep.ni h.gov eGFR Non-AA (test >60.00 >=60.00 eGFR (nataly mated code = eGFR Non-AA) mL/min/1.73 m2 Glomer ular Filtration Rate ) is an estimated va lue, calculated from the patient's serum creatinine usin g the MDRD equation. It is NOT the patient 's actual GFR. The eGFR provides a more clinically usef ul measure of kidn ey disease than se rum creatinine alone.This calculation radha es sex and race in to account, if the information is provided. If th e race is not provided, and t he patient is -Johanna n, multiply by 1.2 12. If sex is not provided, and t he patient is fema le, multiply by 0.7 42. Results for pat ients <18 years of ag e have not been validated by th e MDRD study and should be interpreted wit h caution. eGFR R esult Interpretation: eGFR > or = 60 is in the Normal RangeeGF R < 60 may mean kid lorin diseaseeGFR < 1 5 may mean kidney failure Rang es recommended by the National Kidney Foundation, http://nkdep.ni h.gov Hemolysis (test code 0 mg/dL N Referen ce range = Hemolysis) changed due to change in patie nt's sex at 0 10:21:00. Norm al Low changed fro m 8 to not defined. Normal High dante nged from 11 to not defined. Resul t flag changed fr om L to not applied. Critical flag changed due to change of sex a t 10:21 :00. Critical flag changed from wi thin range to not applied. Icterus (test code = 0 mg/dL N Referen ce range Icterus) changed due to change in patie nt's sex at 0 10:21:00. Norm al Low changed fro m 8 to not defined. Normal High dante nged from 11 to not defined. Resul t flag changed fr om L to not applied. Critical flag changed due to change of sex a t 10:21 :00. Critical flag changed from wi thin range to not applied. Lipemia (test code = 0 mg/dL N Referen ce range Lipemia) changed due to change in patie nt's sex at 0 10:21:00. Norm al Low changed fro m 8 to not defined. Normal High dante nged from 11 to not defined. Resul t flag changed fr om L to not applied. Critical flag changed due to change of sex a t 10:21 :00. Critical flag changed from wi thin range to not applied. IG [id number] 08:02:53 Test Item Value Reference Range Interpretation Comments IG (test code = IG) 0.2 % 0.0-5.0 IG Abs (test code = IG Abs) 0 x10 N Automated [id number] 08:02:41 Test Item Value Reference Range Interpretation Comments Neutro Auto (test code = Neutro 80.8 % 36.0-70.0 H Auto) Lymph Auto (test code = Lymph Auto) 12.5 % 12.0-44.0 Sully Auto (test code = Sully Auto) 6.1 % 0.0-11.0 Eos, Auto (test code = Eos, Auto) 0.2 % 0.0-7.0 Basophil Auto (test code = Basophil 0.2 % 0.0-2.0 Auto) Neutro Absolute (test code = Neutro 10.0 x10 1.6-7.4 H Absolute) Lymph Absolute (test code = Lymph 1.55 x10 .50-4.60 Absolute) Sully Absolute (test code = Sully .76 x10 .00-1.20 Absolute) Eos Absolute (test code = Eos 0.03 x10 0.00-0.74 Absolute) Baso Absolute (test code = Baso 0.03 x10 0.00-0.21 Absolute) Complete Blood Count with [id number] 06:27:04 Test Item Value Reference Range Interpretation Comments WBC (test code = WBC) 12.4 x10 4.4-10.5 H RBC (test code = RBC) 3.55 x10 4.10-5.70 L Hgb (test code = Hgb) 9.9 g/dL 13.4-17.4 L Hct (test code = Hct) 32.3 % 38.7-52.0 L MCV (test code = MCV) 91.00 fL 80.00-100.00 MCHC (test code = 30.70 g/dL 32.00-37.50 L MCHC) RDW CV (test code = 14.2 % 11.5-14.5 RDW CV) MCH (test code = MCH) 27.9 pg 27.0-32.5 Platelets (test code = 296.0 x10 140.0-440.0 Platelets) MPV (test code = MPV) 9.2 fL N Slide Review (test Auto Auto Result cr eated by code = Slide Review) GL_SJM_ SLIDE_REV_AUTO nRBC (test code = 0 N nRBC) NRBC Abs (test code = 0.00 x10 N NRBC Abs) Complete Blood Count with [id number] 06:27:04 Test Item Value Reference Range Interpretation Comments WBC (test code = WBC) 12.4 x10 4.4-10.5 H RBC (test code = RBC) 3.55 x10 3.75-5.20 L Refere nce range changed due to change in patient's se x at 10:21 :00. Normal Low luna ged from 4.10 to 3. 75. Normal High dante nged from 5.70 to 5. 20. Result flag not changed. Hgb (test code = Hgb) 9.9 g/dL 12.2-14.8 L Refere nce range changed due to change in patient's se x at 10:21 :00. Normal Low luna ged from 13.4 to 12 .2. Normal High dante nged from 17.4 to 14 .8. Result flag not changed. Hct (test code = Hct) 32.3 % 36.5-44.4 L Refere nce range changed due to change in patient's se x at 10:21 :00. Normal Low luna ged from 38.7 to 36 .5. Normal High dante nged from 52.0 to 44 .4. Result flag not changed. MCV (test code = MCV) 91.00 fL 80.00-100.00 MCHC (test code = 30.70 g/dL 32.00-37.50 L MCHC) RDW CV (test code = 14.2 % 11.5-14.5 RDW CV) MCH (test code = MCH) 27.9 pg 27.0-32.5 Platelets (test code = 296.0 x10 140.0-440.0 Platelets) MPV (test code = MPV) 9.2 fL N Slide Review (test Auto Auto Result cr eated by code = Slide Review) GL_SJM_ SLIDE_REV_AUTO nRBC (test code = 0 N nRBC) NRBC Abs (test code = 0.00 x10 N NRBC Abs) Basic Metabolic [id number] 06:26:50 Test Item Value Reference Range Interpretation Comments Sodium Level (test code = Sodium 133.0 mmol/L 136.0-145.0 L Level) Potassium Level (test code = 5.40 mmol/L 3.50-5.10 H Potassium Level) Chloride Level (test code = 101.0 mmol/L 98.0-107.0 Chloride Level) CO2 (test code = CO2) 29 mmol/L 20-31 Anion Gap (test code = Anion 3.3 mmol/L 5.0-15.0 L Gap) BUN (test code = BUN) 15 mg/dL 9-23 Creatinine Level (test code = 0.69 mg/dL 0.70-1.30 L Creatinine Level) BUN/Creat Ratio (test code = 21.7 ratio 10.0-20.0 H BUN/Creat Ratio) Glucose Level (test code = 96 mg/dL 74-106 Glucose Level) Calcium Level (test code = 8.2 mg/dL 8.3-10.6 L Calcium Level) Hemolysis (test code = 0 mg/dL 8-11 L Hemolysis) Icterus (test code = Icterus) 0 mg/dL 8-11 L Lipemia (test code = Lipemia) 0 mg/dL 8-11 L Magnesium [id number] 06:26:50 Test Item Value Reference Range Interpretation Comments Magnesium Level (test code = 2.11 mg/dL 1.60-2.60 Magnesium Level) Basic Metabolic [id number] 06:26:50 Test Item Value Reference Range Interpretation Comments Sodium Level (test 133.0 mmol/L 136.0-145.0 L code = Sodium Level) Potassium Level 5.40 mmol/L 3.50-5.10 H (test code = Potassium Level) Chloride Level (test 101.0 mmol/L 98.0-107.0 code = Chloride Level) CO2 (test code = 29 mmol/L 20-31 CO2) Anion Gap (test code 3.3 mmol/L 5.0-15.0 L = Anion Gap) BUN (test code = 15 mg/dL 9-23 BUN) Creatinine Level 0.69 mg/dL 0.70-1.30 L (test code = Creatinine Level) BUN/Creat Ratio 21.7 ratio 10.0-20.0 H (test code = BUN/Creat Ratio) Glucose Level (test 96 mg/dL 74-106 code = Glucose Level) Calcium Level (test 8.2 mg/dL 8.3-10.6 L code = Calcium Level) eGFR AA (test code = >60 >=60 eGFR (e stimated eGFR AA) mL/min/1.73 m2 Glomerular Filtration Rate ) is an estimated va lue, calculated from the patient's serum creatinine usin g the MDRD equation. It is NOT the patient 's actual GFR. The eGFR provides a more clinically usef ul measure of kidn ey disease than se rum creatinine alone.This calculation radha es sex and race in to account, if the information is provided. If th e race is not provided, and t he patient is -Johanna n, multiply by 1.2 12. If sex is not provided, and t he patient is fema le, multiply by 0.7 42. Results for pat ients <18 years of ag e have not been validated by th e MDRD study and should be interpreted wit h caution. eGFR R esult Interpretation: eGFR > or = 60 is in the Normal RangeeGF R < 60 may mean kid lorin diseaseeGFR < 1 5 may mean kidney failure Rang es recommended by the National Kidney Foundation, http://nkdep.ni h.gov Hemolysis (test code 0 mg/dL 8-11 L = Hemolysis) Icterus (test code = 0 mg/dL 8-11 L Icterus) Lipemia (test code = 0 mg/dL 8-11 L Lipemia) Basic Metabolic [id number] 06:26:50 Test Item Value Reference Range Interpretation Comments Sodium Level (test 133.0 mmol/L 136.0-145.0 L code = Sodium Level) Potassium Level 5.40 mmol/L 3.50-5.10 H (test code = Potassium Level) Chloride Level (test 101.0 mmol/L 98.0-107.0 code = Chloride Level) CO2 (test code = 29 mmol/L 20-31 CO2) Anion Gap (test code 3.3 mmol/L 5.0-15.0 L = Anion Gap) BUN (test code = 15 mg/dL 9-23 BUN) Creatinine Level 0.69 mg/dL 0.70-1.30 L (test code = Creatinine Level) BUN/Creat Ratio 21.7 ratio 10.0-20.0 H (test code = BUN/Creat Ratio) Glucose Level (test 96 mg/dL 74-106 code = Glucose Level) Calcium Level (test 8.2 mg/dL 8.3-10.6 L code = Calcium Level) eGFR AA (test code = >60 >=60 eGFR (e stimated eGFR AA) mL/min/1.73 m2 Glomerular Filtration Rate ) is an estimated va lue, calculated from the patient's serum creatinine usin g the MDRD equation. It is NOT the patient 's actual GFR. The eGFR provides a more clinically usef ul measure of kidn ey disease than se rum creatinine alone.This calculation radha es sex and race in to account, if the information is provided. If th e race is not provided, and t he patient is -Johanna n, multiply by 1.2 12. If sex is not provided, and t he patient is fema le, multiply by 0.7 42. Results for pat ients <18 years of ag e have not been validated by [facility] MDRD study and should be interpreted wit h caution. eGFR R esult Interpretation: eGFR > or = 60 is in the Normal RangeeGF R < 60 may mean kid lorin diseaseeGFR < 1 5 may mean kidney failure Rang es recommended by the National Kidney Foundation, http://nkdep.ni h.gov eGFR Non-AA (test >60.00 >=60.00 eGFR (nataly mated code = eGFR Non-AA) mL/min/1.73 m2 Glomer ular Filtration Rate ) is an estimated va lue, calculated from the patient's serum creatinine usin g the MDRD equation. It is NOT the patient 's actual GFR. The eGFR provides a more clinically usef ul measure of kidn ey disease than se rum creatinine alone.This calculation radha es sex and race in to account, if the information is provided. If th e race is not provided, and t he patient is -Johanna n, multiply by 1.2 12. If sex is not provided, and t he patient is fema le, multiply by 0.7 42. Results for pat ients <18 years of ag e have not been validated by [facility] MDRD study and should be interpreted wit h caution. eGFR R esult Interpretation: eGFR > or = 60 is in the Normal RangeeGF R < 60 may mean kid lorin diseaseeGFR < 1 5 may mean kidney failure Rang es recommended by the National Kidney Foundation, http://nkdep.ni h.gov Hemolysis (test code 0 mg/dL 8-11 L = Hemolysis) Icterus (test code = 0 mg/dL 8-11 L Icterus) Lipemia (test code = 0 mg/dL 8-11 L Lipemia) Basic Metabolic [id number] 06:26:50 Test Item Value Reference Range Interpretation Comments Sodium Level (test 133.0 mmol/L 136.0-145.0 L code = Sodium Level) Potassium Level 5.40 mmol/L 3.50-5.10 H (test code = Potassium Level) Chloride Level (test 101.0 mmol/L 98.0-107.0 code = Chloride Level) CO2 (test code = 29 mmol/L 20-31 CO2) Anion Gap (test code 3.3 mmol/L 5.0-15.0 L = Anion Gap) BUN (test code = 15 mg/dL 9-23 BUN) Creatinine Level 0.69 mg/dL 0.55-1.02 Reference r sarah (test code = changed due to Creatinine Level) change in patient's sex at 0 10:21:00. Norm al Low changed fro m 0.70 to 0.55. Normal High dante nged from 1.30 to 1. 02. Result flag dante nged from L to withi n range. BUN/Creat Ratio 21.7 ratio 10.0-20.0 H (test code = BUN/Creat Ratio) Glucose Level (test 96 mg/dL 74-106 code = Glucose Level) Calcium Level (test 8.2 mg/dL 8.3-10.6 L code = Calcium Level) eGFR AA (test code = >60 >=60 eGFR (e stimated eGFR AA) mL/min/1.73 m2 Glomerular Filtration Rate ) is an estimated va lue, calculated from the patient's serum creatinine usin g the MDRD equation. It is NOT the patient 's actual GFR. The eGFR provides a more clinically usef ul measure of kidn ey disease than se rum creatinine alone.This calculation radha es sex and race in to account, if the information is provided. If th e race is not provided, and t he patient is -Johanna n, multiply by 1.2 12. If sex is not provided, and t he patient is fema le, multiply by 0.7 42. Results for pat ients <18 years of ag e have not been validated by [facility] MDRD study and should be interpreted wit h caution. eGFR R esult Interpretation: eGFR > or = 60 is in the Normal RangeeGF R < 60 may mean kid lorin diseaseeGFR < 1 5 may mean kidney failure Rang es recommended by the National Kidney Foundation, http://nkdep.ni h.gov eGFR Non-AA (test >60.00 >=60.00 eGFR (nataly mated code = eGFR Non-AA) mL/min/1.73 m2 Glomer ular Filtration Rate ) is an estimated va lue, calculated from the patient's serum creatinine usin g the MDRD equation. It is NOT the patient 's actual GFR. The eGFR provides a more clinically usef ul measure of kidn ey disease than se rum creatinine alone.This calculation radha es sex and race in to account, if the information is provided. If e race is not provided, and t he patient is -Johanna n, multiply by 1.2 12. If sex is not provided, and t he patient is fema le, multiply by 0.7 42. Results for pat ients <18 years of ag e have not been validated by [facility] MDRD study and should be interpreted wit h caution. eGFR R esult Interpretation: eGFR > or = 60 is in the Normal RangeeGF R < 60 may mean kid lorin diseaseeGFR < 1 5 may mean kidney failure Rang es recommended by the National Kidney Foundation, http://nkdep.ni h.gov Hemolysis (test code 0 mg/dL N Referen ce range = Hemolysis) changed due to change in patie nt's sex at 0 10:21:00. Norm al Low changed fro m 8 to not defined. Normal High dante nged from 11 to not defined. Resul t flag changed fr om L to not applied. Critical flag changed due to change of sex a t 10:21 :00. Critical flag changed from wi thin range to not applied. Icterus (test code = 0 mg/dL N Referen ce range Icterus) changed due to change in patie nt's sex at 0 10:21:00. Norm al Low changed fro m 8 to not defined. Normal High dante nged from 11 to not defined. Resul t flag changed fr om L to not applied. Critical flag changed due to change of sex a t 10:21 :00. Critical flag changed from wi thin range to not applied. Lipemia (test code = 0 mg/dL N Referen ce range Lipemia) changed due to change in patie nt's sex at 0 10:21:00. Norm al Low changed fro m 8 to not defined. Normal High dante nged from 11 to not defined. Resul t flag changed fr om L to not applied. Critical flag changed due to change of sex a t 10:21 :00. Critical flag changed from wi thin range to not applied. IG [id number] 16:24:28 Test Item Value Reference Range Interpretation Comments IG (test code = IG) 0.3 % 0.0-5.0 IG Abs (test code = IG Abs) 0 x10 N Manual [id number] 16:24:20 Test Item Value Reference Range Interpretation Comments Segs Man (test code = Segs Man) 91.0 % 36.0-70.0 H Band Man (test code = Band Man) 4.0 % 0.0-6.0 Lymph Man (test code = Lymph 3.0 % 12.0-44.0 L Man) Monocyte Man (test code = 2.0 % 0.0-11.0 Monocyte Man) Eos Man (test code = Eos Man) 0.0 % 0.0-7.0 Basophil Man (test code = 0.0 0.0-2.0 Basophil Man) RBC Morph (test code = RBC As Indicated Normal A Morph) Hypochromia (test code = 1+ None Seen Hypochromia) Plt Estimation (test code = Plt Normal Normal Estimation) Manual [id number] 16:24:20 Test Item Value Reference Range Interpretation Comments Segs Man (test code = Segs Man) 91.0 % 36.0-70.0 H Band Man (test code = Band Man) 4.0 % 0.0-6.0 Lymph Man (test code = Lymph 3.0 % 12.0-44.0 L Man) Monocyte Man (test code = 2.0 % 0.0-11.0 Monocyte Man) Eos Man (test code = Eos Man) 0.0 % 0.0-7.0 Basophil Man (test code = 0.0 0.0-2.0 Basophil Man) Neut Man Abs (test code = Neut 14.9 x10 1.6-7.4 H Man Abs) Lymph Man Abs (test code = Lymph 0.5 x10 0.5-4.6 Man Abs) Sully Man Abs (test code = Sully 0.3 x10 0.0-1.2 Man Abs) Eos Man Abs (test code = Eos Man 0.00 x10 0.00-0.74 Abs) Baso Man Abs (test code = Baso 0.00 x10 0.00-0.21 Man Abs) RBC Morph (test code = RBC As Indicated Normal A Morph) Hypochromia (test code = 1+ None Seen Hypochromia) Anisocyte (test code = None None Anisocyte) Microcyte (test code = None Seen None Seen Microcyte) Macrocyte (test code = None Seen None Seen Macrocyte) Poik (test code = Poik) None Seen None Seen Polychrom (test code = None Seen None Seen Polychrom) Acanthocyte (test code = None Seen None Seen Acanthocyte) Baso Stippling RBC (test code = None Seen None Seen Baso Stippling RBC) Plt Estimation (test code = Plt Normal Normal Estimation) Basic Metabolic [id number] 16:20:56 Test Item Value Reference Range Interpretation Comments Sodium Level (test code = Sodium 136.0 mmol/L 136.0-145.0 Level) Potassium Level (test code = 5.00 mmol/L 3.50-5.10 Potassium Level) Chloride Level (test code = 102.0 mmol/L 98.0-107.0 Chloride Level) CO2 (test code = CO2) 25 mmol/L 20-31 Anion Gap (test code = Anion 8.9 mmol/L 5.0-15.0 Gap) BUN (test code = BUN) 17 mg/dL 9-23 Creatinine Level (test code = 0.83 mg/dL 0.70-1.30 Creatinine Level) BUN/Creat Ratio (test code = 20.5 ratio 10.0-20.0 H BUN/Creat Ratio) Glucose Level (test code = 114 mg/dL 74-106 H Glucose Level) Calcium Level (test code = 8.7 mg/dL 8.3-10.6 Calcium Level) Hemolysis (test code = 0 mg/dL 8-11 Hemolysis) Icterus (test code = Icterus) 0 mg/dL 8-11 Lipemia (test code = Lipemia) 0 mg/dL 8-11 Basic Metabolic [id number] 16:20:56 Test Item Value Reference Range Interpretation Comments Sodium Level (test 136.0 mmol/L 136.0-145.0 code = Sodium Level) Potassium Level 5.00 mmol/L 3.50-5.10 (test code = Potassium Level) Chloride Level (test 102.0 mmol/L 98.0-107.0 code = Chloride Level) CO2 (test code = 25 mmol/L 20-31 CO2) Anion Gap (test code 8.9 mmol/L 5.0-15.0 = Anion Gap) BUN (test code = 17 mg/dL 9-23 BUN) Creatinine Level 0.83 mg/dL 0.70-1.30 (test code = Creatinine Level) BUN/Creat Ratio 20.5 ratio 10.0-20.0 H (test code = BUN/Creat Ratio) Glucose Level (test 114 mg/dL 74-106 H code = Glucose Level) Calcium Level (test 8.7 mg/dL 8.3-10.6 code = Calcium Level) eGFR AA (test code = >60 >=60 eGFR (e stimated eGFR AA) mL/min/1.73 m2 Glomerular Filtration Rate ) is an estimated va lue, calculated from the patient's serum creatinine usin g the MDRD equation. It is NOT the patient 's actual GFR. The eGFR provides a more clinically usef ul measure of kidn ey disease than se rum creatinine alone.This calculation radha es sex and race in to account, if the information is provided. If th e race is not provided, and t he patient is -Johanna n, multiply by 1.2 12. If sex is not provided, and t he patient is fema le, multiply by 0.7 42. Results for pat ients <18 years of ag e have not been validated by th e MDRD study and should be interpreted wit h caution. eGFR R esult Interpretation: eGFR > or = 60 is in the Normal RangeeGF R < 60 may mean kid lorin diseaseeGFR < 1 5 may mean kidney failure Rang es recommended by the [employer], http://nkdep.ni h.gov Hemolysis (test code 0 mg/dL 8-11 = Hemolysis) Icterus (test code = 0 mg/dL 8-11 Icterus) Lipemia (test code = 0 mg/dL 8-11 Lipemia) Basic Metabolic [id number] 16:20:56 Test Item Value Reference Range Interpretation Comments Sodium Level (test 136.0 mmol/L 136.0-145.0 code = Sodium Level) Potassium Level 5.00 mmol/L 3.50-5.10 (test code = Potassium Level) Chloride Level (test 102.0 mmol/L 98.0-107.0 code = Chloride Level) CO2 (test code = 25 mmol/L 20-31 CO2) Anion Gap (test code 8.9 mmol/L 5.0-15.0 = Anion Gap) BUN (test code = 17 mg/dL 9-23 BUN) Creatinine Level 0.83 mg/dL 0.70-1.30 (test code = Creatinine Level) BUN/Creat Ratio 20.5 ratio 10.0-20.0 H (test code = BUN/Creat Ratio) Glucose Level (test 114 mg/dL 74-106 H code = Glucose Level) Calcium Level (test 8.7 mg/dL 8.3-10.6 code = Calcium Level) eGFR AA (test code = >60 >=60 eGFR (e stimated eGFR AA) mL/min/1.73 m2 Glomerular Filtration Rate ) is an estimated va lue, calculated from the patient's serum creatinine usin g the MDRD equation. It is NOT the patient 's actual GFR. The eGFR provides a more clinically usef ul measure of kidn ey disease than se rum creatinine alone.This calculation radha es sex and race in to account, if the information is provided. If th e race is not provided, and t he patient is -Johanna n, multiply by 1.2 12. If sex is not provided, and t he patient is fema le, multiply by 0.7 42. Results for pat ients <18 years of ag e have not been validated by th e MDRD study and should be interpreted wit h caution. eGFR R esult Interpretation: eGFR > or = 60 is in the Normal RangeeGF R < 60 may mean kid lorin diseaseeGFR < 1 5 may mean kidney failure Rang es recommended by the [employer], http://nkdep.ni h.gov eGFR Non-AA (test >60.00 >=60.00 eGFR (nataly mated code = eGFR Non-AA) mL/min/1.73 m2 Glomer ular Filtration Rate ) is an estimated va lue, calculated from the patient's serum creatinine usin g the MDRD equation. It is NOT the patient 's actual GFR. The eGFR provides a more clinically usef ul measure of kidn ey disease than se rum creatinine alone.This calculation radha es sex and race in to account, if the information is provided. If e race is not provided, and t he patient is -Johanna n, multiply by 1.2 12. If sex is not provided, and t he patient is fema le, multiply by 0.7 42. Results for pat ients <18 years of ag e have not been validated by [facility] MDRD study and should be interpreted wit h caution. eGFR R esult Interpretation: eGFR > or = 60 is in the Normal RangeeGF R < 60 may mean kid lorin diseaseeGFR < 1 5 may mean kidney failure Rang es recommended by the [employer], http://nkdep.ni h.gov Hemolysis (test code 0 mg/dL 8-11 = Hemolysis) Icterus (test code = 0 mg/dL 8-11 Icterus) Lipemia (test code = 0 mg/dL 8-11 Lipemia) Basic Metabolic [id number] 16:20:56 Test Item Value Reference Range Interpretation Comments Sodium Level (test 136.0 mmol/L 136.0-145.0 code = Sodium Level) Potassium Level 5.00 mmol/L 3.50-5.10 (test code = Potassium Level) Chloride Level (test 102.0 mmol/L 98.0-107.0 code = Chloride Level) CO2 (test code = 25 mmol/L 20-31 CO2) Anion Gap (test code 8.9 mmol/L 5.0-15.0 = Anion Gap) BUN (test code = 17 mg/dL 9-23 BUN) Creatinine Level 0.83 mg/dL 0.55-1.02 Reference r sarah (test code = changed due to Creatinine Level) change in patient's sex at 0 10:21:01. Norm al Low changed fro m 0.70 to 0.55. Normal High dante nged from 1.30 to 1. 02. Result flag not changed. BUN/Creat Ratio 20.5 ratio 10.0-20.0 H (test code = BUN/Creat Ratio) Glucose Level (test 114 mg/dL 74-106 H code = Glucose Level) Calcium Level (test 8.7 mg/dL 8.3-10.6 code = Calcium Level) eGFR AA (test code = >60 >=60 eGFR (e stimated eGFR AA) mL/min/1.73 m2 Glomerular Filtration Rate ) is an estimated va lue, calculated from the patient's serum creatinine usin g the MDRD equation. It is NOT the patient 's actual GFR. The eGFR provides a more clinically usef ul measure of kidn ey disease than se rum creatinine alone.This calculation radha es sex and race in to account, if the information is provided. If th e race is not provided, and t he patient is -Johanna n, multiply by 1.2 12. If sex is not provided, and t he patient is fema le, multiply by 0.7 42. Results for pat ients <18 years of ag e have not been validated by th e MDRD study and should be interpreted wit h caution. eGFR R esult Interpretation: eGFR > or = 60 is in the Normal RangeeGF R < 60 may mean kid lorin diseaseeGFR < 1 5 may mean kidney failure Rang es recommended by the [employer], http://nkdep.ni h.gov eGFR Non-AA (test >60.00 >=60.00 eGFR (nataly mated code = eGFR Non-AA) mL/min/1.73 m2 Glomer ular Filtration Rate ) is an estimated va lue, calculated from the patient's serum creatinine usin g the MDRD equation. It is NOT the patient 's actual GFR. The eGFR provides a more clinically usef ul measure of kidn ey disease than se rum creatinine alone.This calculation radha es sex and race in to account, if the information is provided. If th e race is not provided, and t he patient is -Johanna n, multiply by 1.2 12. If sex is not provided, and t he patient is fema le, multiply by 0.7 42. Results for pat ients <18 years of ag e have not been validated by th e MDRD study and should be interpreted wit h caution. eGFR R esult Interpretation: eGFR > or = 60 is in the Normal RangeeGF R < 60 may mean kid lorin diseaseeGFR < 1 5 may mean kidney failure Rang es recommended by the [employer], http://nkdep.ni h.gov Hemolysis (test code 0 mg/dL N Referen ce range = Hemolysis) changed due to change in patie nt's sex at 0 10:21:01. Norm al Low changed fro m 8 to not defined. Normal High dante nged from 11 to not defined. Resul t flag changed fr om within range to not applied. Criti janene flag changed du e to change of sex a t 10:21 :01. Critical flag changed from wi thin range to not applied. Icterus (test code = 0 mg/dL N Referen ce range Icterus) changed due to change in patie nt's sex at 0 10:21:01. Norm al Low changed fro m 8 to not defined. Normal High dante nged from 11 to not defined. Resul t flag changed fr om within range to not applied. Criti janene flag changed du e to change of sex a t 10:21 :01. Critical flag changed from wi thin range to not applied. Lipemia (test code = 0 mg/dL N Referen ce range Lipemia) changed due to change in patie nt's sex at 0 10:21:01. Norm al Low changed fro m 8 to not defined. Normal High dante nged from 11 to not defined. Resul t flag changed fr om within range to not applied. Criti janene flag changed du e to change of sex a t 10:21 :01. Critical flag changed from wi thin range to not applied. Complete Blood Count with [id number] 16:07:52 Test Item Value Reference Range Interpretation Comments WBC (test code = WBC) 15.7 x10 4.4-10.5 H RBC (test code = RBC) 3.99 x10 4.10-5.70 L Hgb (test code = Hgb) 10.7 g/dL 13.4-17.4 L MCV (test code = MCV) 90.00 fL 80.00-100.00 Hct (test code = Hct) 35.9 % 38.7-52.0 L MCHC (test code = 29.80 g/dL 32.00-37.50 L MCHC) RDW CV (test code = 14.1 % 11.5-14.5 RDW CV) MCH (test code = MCH) 26.8 pg 27.0-32.5 L Platelets (test code = 295.0 x10 140.0-440.0 Platelets) MPV (test code = MPV) 8.8 fL N Slide Review (test Manual Auto A Result cr eated by code = Slide Review) GL_SJM_ SLIDE_REV_AUTO GL_SJM_XN_RFLX Complete Blood Count with [id number] 16:07:52 Test Item Value Reference Range Interpretation Comments WBC (test code = WBC) 15.7 x10 4.4-10.5 H RBC (test code = RBC) 3.99 x10 4.10-5.70 L Hgb (test code = Hgb) 10.7 g/dL 13.4-17.4 L Hct (test code = Hct) 35.9 % 38.7-52.0 L MCV (test code = MCV) 90.00 fL 80.00-100.00 MCHC (test code = 29.80 g/dL 32.00-37.50 L MCHC) RDW CV (test code = 14.1 % 11.5-14.5 RDW CV) MCH (test code = MCH) 26.8 pg 27.0-32.5 L Platelets (test code = 295.0 x10 140.0-440.0 Platelets) MPV (test code = MPV) 8.8 fL N Slide Review (test Manual Auto A Result cr eated by code = Slide Review) GL_SJM_ SLIDE_REV_AUTO GL_SJM_XN_RFLX nRBC (test code = 0 N nRBC) NRBC Abs (test code = 0.00 x10 N NRBC Abs) Pos Diff XN (test code A N = Pos Diff XN) Pos Morph XN (test A N code = Pos Morph XN) Complete Blood Count with [id number] 16:07:52 Test Item Value Reference Range Interpretation Comments WBC (test code = WBC) 15.7 x10 4.4-10.5 H RBC (test code = RBC) 3.99 x10 3.75-5.20 Refere nce range changed due to change in patient's se x at 10:21 :01. Normal Low luna ged from 4.10 to 3. 75. Normal High dante nged from 5.70 to 5. 20. Result flag dante nged from L to withi n range. Hgb (test code = Hgb) 10.7 g/dL 12.2-14.8 L Refere nce range changed due to change in patient's se x at 10:21 :01. Normal Low luna ged from 13.4 to 12 .2. Normal High dante nged from 17.4 to 14 .8. Result flag not changed. Hct (test code = Hct) 35.9 % 36.5-44.4 L Refere nce range changed due to change in patient's se x at 10:21 :01. Normal Low luna ged from 38.7 to 36 .5. Normal High dante nged from 52.0 to 44 .4. Result flag not changed. MCV (test code = MCV) 90.00 fL 80.00-100.00 MCHC (test code = 29.80 g/dL 32.00-37.50 L MCHC) RDW CV (test code = 14.1 % 11.5-14.5 RDW CV) MCH (test code = MCH) 26.8 pg 27.0-32.5 L Platelets (test code = 295.0 x10 140.0-440.0 Platelets) MPV (test code = MPV) 8.8 fL N Slide Review (test Manual Auto A Result cr eated by code = Slide Review) GL_SJM_ SLIDE_REV_AUTO GL_SJM_XN_RFLX nRBC (test code = 0 N nRBC) NRBC Abs (test code = 0.00 x10 N NRBC Abs) Pos Diff XN (test code A N = Pos Diff XN) Pos Morph XN (test A N code = Pos Morph XN) Comprehensive Metabolic [id number] 17:18:42 Test Item Value Reference Range Interpretation Comments Sodium Level (test code = Sodium 137.0 mmol/L 136.0-145.0 Level) Potassium Level (test code = 4.10 mmol/L 3.50-5.10 Potassium Level) Chloride Level (test code = 102.0 mmol/L 98.0-107.0 Chloride Level) CO2 (test code = CO2) 31 mmol/L 20-31 Anion Gap (test code = Anion 4.0 mmol/L 5.0-15.0 L Gap) BUN (test code = BUN) 14 mg/dL 9-23 Creatinine Level (test code = 0.83 mg/dL 0.55-1.02 Creatinine Level) BUN/Creat Ratio (test code = 16.9 ratio 10.0-20.0 BUN/Creat Ratio) Glucose Level (test code = 98 mg/dL 74-106 Glucose Level) Calcium Level (test code = 9.6 mg/dL 8.3-10.6 Calcium Level) Alk Phos (test code = Alk Phos) 104 U/L 46-116 Bilirubin Total (test code = 0.3 mg/dL 0.2-1.1 Bilirubin Total) Albumin Level (test code = 4.6 g/dL 3.2-4.8 Albumin Level) Protein Total (test code = 6.9 g/dL 5.7-8.2 Protein Total) ALT (test code = ALT) <10 U/L 10-49 AST (test code = AST) 20 U/L <=34 Globulin (test code = Globulin) 2.3 g/dL 2.3-3.5 A/G Ratio (test code = A/G 2.0 g/dL 0.8-2.0 Ratio) Hemolysis (test code = 0 g/dL 1-2 Hemolysis) Icterus (test code = Icterus) 0 g/dL 1-2 Lipemia (test code = Lipemia) 0 g/dL 1-2 Comprehensive Metabolic [id number] 17:18:42 Test Item Value Reference Range Interpretation Comments Sodium Level (test 137.0 mmol/L 136.0-145.0 code = Sodium Level) Potassium Level 4.10 mmol/L 3.50-5.10 (test code = Potassium Level) Chloride Level (test 102.0 mmol/L 98.0-107.0 code = Chloride Level) CO2 (test code = 31 mmol/L 20-31 CO2) Anion Gap (test code 4.0 mmol/L 5.0-15.0 L = Anion Gap) BUN (test code = 14 mg/dL 9-23 BUN) Creatinine Level 0.83 mg/dL 0.55-1.02 (test code = Creatinine Level) BUN/Creat Ratio 16.9 ratio 10.0-20.0 (test code = BUN/Creat Ratio) Glucose Level (test 98 mg/dL 74-106 code = Glucose Level) Calcium Level (test 9.6 mg/dL 8.3-10.6 code = Calcium Level) Alk Phos (test code 104 U/L 46-116 = Alk Phos) Bilirubin Total 0.3 mg/dL 0.2-1.1 (test code = Bilirubin Total) Albumin Level (test 4.6 g/dL 3.2-4.8 code = Albumin Level) Protein Total (test 6.9 g/dL 5.7-8.2 code = Protein Total) ALT (test code = <10 U/L 10-49 ALT) AST (test code = 20 U/L <=34 AST) Globulin (test code 2.3 g/dL 2.3-3.5 = Globulin) A/G Ratio (test code 2.0 g/dL 0.8-2.0 = A/G Ratio) eGFR AA (test code = >60 >=60 eGFR (e stimated eGFR AA) mL/min/1.73 m2 Glomerular Filtration Rate ) is an estimated va lue, calculated from the patient's serum creatinine usin g the MDRD equation. It is NOT the patient 's actual GFR. The eGFR provides a more clinically usef ul measure of kidn ey disease than se rum creatinine alone.This calculation radha es sex and race in to account, if the information is provided. If th e race is not provided, and t he patient is -Johanna n, multiply by 1.2 12. If sex is not provided, and t he patient is fema le, multiply by 0.7 42. Results for pat ients <18 years of ag e have not been validated by th e MDRD study and should be interpreted wit h caution. eGFR R esult Interpretation: eGFR > or = 60 is in the Normal RangeeGF R < 60 may mean kid lorin diseaseeGFR < 1 5 may mean kidney failure Rang es recommended by the [employer] Kid[employer], http://nkdep.ni h.gov Hemolysis (test code 0 g/dL 1-2 = Hemolysis) Icterus (test code = 0 g/dL 1-2 Icterus) Lipemia (test code = 0 g/dL 1-2 Lipemia) Comprehensive Metabolic [id number] 17:18:42 Test Item Value Reference Range Interpretation Comments Sodium Level (test 137.0 mmol/L 136.0-145.0 code = Sodium Level) Potassium Level 4.10 mmol/L 3.50-5.10 (test code = Potassium Level) Chloride Level (test 102.0 mmol/L 98.0-107.0 code = Chloride Level) CO2 (test code = 31 mmol/L 20-31 CO2) Anion Gap (test code 4.0 mmol/L 5.0-15.0 L = Anion Gap) BUN (test code = 14 mg/dL 9-23 BUN) Creatinine Level 0.83 mg/dL 0.55-1.02 (test code = Creatinine Level) BUN/Creat Ratio 16.9 ratio 10.0-20.0 (test code = BUN/Creat Ratio) Glucose Level (test 98 mg/dL 74-106 code = Glucose Level) Calcium Level (test 9.6 mg/dL 8.3-10.6 code = Calcium Level) Alk Phos (test code 104 U/L 46-116 = Alk Phos) Bilirubin Total 0.3 mg/dL 0.2-1.1 (test code = Bilirubin Total) Albumin Level (test 4.6 g/dL 3.2-4.8 code = Albumin Level) Protein Total (test 6.9 g/dL 5.7-8.2 code = Protein Total) ALT (test code = <10 U/L 10-49 ALT) AST (test code = 20 U/L <=34 AST) Globulin (test code 2.3 g/dL 2.3-3.5 = Globulin) A/G Ratio (test code 2.0 g/dL 0.8-2.0 = A/G Ratio) eGFR AA (test code = >60 >=60 eGFR (e stimated eGFR AA) mL/min/1.73 m2 Glomerular Filtration Rate ) is an estimated va lue, calculated from the patient's serum creatinine usin g the MDRD equation. It is NOT the patient 's actual GFR. The eGFR provides a more clinically usef ul measure of kidn ey disease than se rum creatinine alone.This calculation radha es sex and race in to account, if the information is provided. If th e race is not provided, and t he patient is -Johanna n, multiply by 1.2 12. If sex is not provided, and t he patient is fema le, multiply by 0.7 42. Results for pat ients <18 years of ag e have not been validated by [facility] MDRD study and should be interpreted wit h caution. eGFR R esult Interpretation: eGFR > or = 60 is in the Normal RangeeGF R < 60 may mean kid lorin diseaseeGFR < 1 5 may mean kidney failure Rang es recommended by the [employer] Kid[employer], http://nkdep.ni h.gov eGFR Non-AA (test >60.00 >=60.00 eGFR (nataly mated code = eGFR Non-AA) mL/min/1.73 m2 Glomer ular Filtration Rate ) is an estimated va lue, calculated from the patient's serum creatinine usin g the MDRD equation. It is NOT the patient 's actual GFR. The eGFR provides a more clinically usef ul measure of kidn ey disease than se rum creatinine alone.This calculation radha es sex and race in to account, if the information is provided. If th e race is not provided, and t he patient is -Johanna n, multiply by 1.2 12. If sex is not provided, and t he patient is fema le, multiply by 0.7 42. Results for pat ients <18 years of ag e have not been validated by [facility] MDRD study and should be interpreted wit h caution. eGFR R esult Interpretation: eGFR > or = 60 is in the Normal RangeeGF R < 60 may mean kid lorin diseaseeGFR < 1 5 may mean kidney failure Rang es recommended by the [employer], http://nkdep.ni h.gov Hemolysis (test code 0 g/dL 1-2 = Hemolysis) Icterus (test code = 0 g/dL 1-2 Icterus) Lipemia (test code = 0 g/dL 1-2 Lipemia) Comprehensive Metabolic [id number] 17:18:42 Test Item Value Reference Range Interpretation Comments Sodium Level (test 137.0 mmol/L 136.0-145.0 code = Sodium Level) Potassium Level 4.10 mmol/L 3.50-5.10 (test code = Potassium Level) Chloride Level (test 102.0 mmol/L 98.0-107.0 code = Chloride Level) CO2 (test code = 31 mmol/L 20-31 CO2) Anion Gap (test code 4.0 mmol/L 5.0-15.0 L = Anion Gap) BUN (test code = 14 mg/dL 9-23 BUN) Creatinine Level 0.83 mg/dL 0.70-1.30 Reference r sarah (test code = changed due to Creatinine Level) change in patient's sex at 0 13:38:29. Norm al Low changed fro m 0.55 to 0.70. Normal High dante nged from 1.02 to 1. 30. Result flag not changed. BUN/Creat Ratio 16.9 ratio 10.0-20.0 (test code = BUN/Creat Ratio) Glucose Level (test 98 mg/dL 74-106 code = Glucose Level) Calcium Level (test 9.6 mg/dL 8.3-10.6 code = Calcium Level) Alk Phos (test code 104 U/L 46-116 = Alk Phos) Bilirubin Total 0.3 mg/dL 0.2-1.1 (test code = Bilirubin Total) Albumin Level (test 4.6 g/dL 3.2-4.8 code = Albumin Level) Protein Total (test 6.9 g/dL 5.7-8.2 code = Protein Total) ALT (test code = <10 U/L 10-49 ALT) AST (test code = 20 U/L <=34 AST) Globulin (test code 2.3 g/dL 2.3-3.5 = Globulin) A/G Ratio (test code 2.0 g/dL 0.8-2.0 = A/G Ratio) eGFR AA (test code = >60 >=60 eGFR (e stimated eGFR AA) mL/min/1.73 m2 Glomerular Filtration Rate ) is an estimated va lue, calculated from the patient's serum creatinine usin g the MDRD equation. It is NOT the patient 's actual GFR. The eGFR provides a more clinically usef ul measure of kidn ey disease than se rum creatinine alone.This calculation radha es sex and race in to account, if the information is provided. If th e race is not provided, and t he patient is -Johanna n, multiply by 1.2 12. If sex is not provided, and t he patient is fema le, multiply by 0.7 42. Results for pat ients <18 years of ag e have not been validated by [facility] MDRD study and should be interpreted wit h caution. eGFR R esult Interpretation: eGFR > or = 60 is in the Normal RangeeGF R < 60 may mean kid lorin diseaseeGFR < 1 5 may mean kidney failure Rang es recommended by the [employer], http://nkdep.ni h.gov eGFR Non-AA (test >60.00 >=60.00 eGFR (nataly mated code = eGFR Non-AA) mL/min/1.73 m2 Glomer ular Filtration Rate ) is an estimated va lue, calculated from the patient's serum creatinine usin g the MDRD equation. It is NOT the patient 's actual GFR. The eGFR provides a more clinically usef ul measure of kidn ey disease than se rum creatinine alone.This calculation radha es sex and race in to account, if the information is provided. If th e race is not provided, and t he patient is -Johanna n, multiply by 1.2 12. If sex is not provided, and t he patient is fema le, multiply by 0.7 42. Results for pat ients <18 years of ag e have not been validated by [facility] MDRD study and should be interpreted wit h caution. eGFR R esult Interpretation: eGFR > or = 60 is in the Normal RangeeGF R < 60 may mean kid lorin diseaseeGFR < 1 5 may mean kidney failure Rang es recommended by the [employer] Kid[employer], http://nkdep.ni h.gov Hemolysis (test code 0 g/dL N Referen ce range = Hemolysis) changed due to change in patie nt's sex at 0 13:38:29. Norm al Low changed fro m 1 to not defined. Normal High dante nged from 2 to not defined. Resul t flag changed fr om within range to not applied. Icterus (test code = 0 g/dL N Referen ce range Icterus) changed due to change in patie nt's sex at 0 13:38:29. Norm al Low changed fro m 1 to not defined. Normal High dante nged from 2 to not defined. Resul t flag changed fr om within range to not applied. Lipemia (test code = 0 g/dL N Referen ce range Lipemia) changed due to change in patie nt's sex at 0 13:38:29. Norm al Low changed fro m 1 to not defined. Normal High dante nged from 2 to not defined. Resul t flag changed fr om within range to not applied. Comprehensive Metabolic [id number] 17:18:42 Test Item Value Reference Range Interpretation Comments Sodium Level (test 137.0 mmol/L 136.0-145.0 code = Sodium Level) Potassium Level 4.10 mmol/L 3.50-5.10 (test code = Potassium Level) Chloride Level (test 102.0 mmol/L 98.0-107.0 code = Chloride Level) CO2 (test code = 31 mmol/L 20-31 CO2) Anion Gap (test code 4.0 mmol/L 5.0-15.0 L = Anion Gap) BUN (test code = 14 mg/dL 9-23 BUN) Creatinine Level 0.83 mg/dL 0.55-1.02 Reference r sarah (test code = changed due to Creatinine Level) change in patient's sex at 0 13:38:29. Norm al Low changed fro m 0.55 to 0.70. Normal High dante nged from 1.02 to 1. 30. Result flag not changed. Refe rence range changed d ue to change in patie nt's sex at 0 10:21:02. Norm al Low changed fro m 0.70 to 0.55. Normal High dante nged from 1.30 to 1. 02. Result flag not changed. BUN/Creat Ratio 16.9 ratio 10.0-20.0 (test code = BUN/Creat Ratio) Glucose Level (test 98 mg/dL 74-106 code = Glucose Level) Calcium Level (test 9.6 mg/dL 8.3-10.6 code = Calcium Level) Alk Phos (test code 104 U/L 46-116 = Alk Phos) Bilirubin Total 0.3 mg/dL 0.2-1.1 (test code = Bilirubin Total) Albumin Level (test 4.6 g/dL 3.2-4.8 code = Albumin Level) Protein Total (test 6.9 g/dL 5.7-8.2 code = Protein Total) ALT (test code = <10 U/L 10-49 ALT) AST (test code = 20 U/L <=34 AST) Globulin (test code 2.3 g/dL 2.3-3.5 = Globulin) A/G Ratio (test code 2.0 g/dL 0.8-2.0 = A/G Ratio) eGFR AA (test code = >60 >=60 eGFR (e stimated eGFR AA) mL/min/1.73 m2 Glomerular Filtration Rate ) is an estimated va lue, calculated from the patient's serum creatinine usin g the MDRD equation. It is NOT the patient 's actual GFR. The eGFR provides a more clinically usef ul measure of kidn ey disease than se rum creatinine alone.This calculation radha es sex and race in to account, if the information is provided. If th e race is not provided, and t he patient is -Johanna n, multiply by 1.2 12. If sex is not provided, and t he patient is fema le, multiply by 0.7 42. Results for pat ients <18 years of ag e have not been validated by th e MDRD study and should be interpreted wit h caution. eGFR R esult Interpretation: eGFR > or = 60 is in the Normal RangeeGF R < 60 may mean kid lorin diseaseeGFR < 1 5 may mean kidney failure Rang es recommended by the National Kid[employer] Foundation, http://nkdep.ni h.gov eGFR Non-AA (test >60.00 >=60.00 eGFR (nataly mated code = eGFR Non-AA) mL/min/1.73 m2 Glomer ular Filtration Rate ) is an estimated va lue, calculated from the patient's serum creatinine usin g the MDRD equation. It is NOT the patient 's actual GFR. The eGFR provides a more clinically usef ul measure of kidn ey disease than se rum creatinine alone.This calculation radha es sex and race in to account, if the information is provided. If th e race is not provided, and t he patient is -Johanna n, multiply by 1.2 12. If sex is not provided, and t he patient is fema le, multiply by 0.7 42. Results for pat ients <18 years of ag e have not been validated by th e MDRD study and should be interpreted wit h caution. eGFR R esult Interpretation: eGFR > or = 60 is in the Normal RangeeGF R < 60 may mean kid lorin diseaseeGFR < 1 5 may mean kidney failure Rang es recommended by the National Kid[employer] Foundation, http://nkdep.ni h.gov Hemolysis (test code 0 g/dL N Referen ce range = Hemolysis) changed due to change in patie nt's sex at 0 13:38:29. Norm al Low changed fro m 1 to not defined. Normal High dante nged from 2 to not defined. Resul t flag changed fr om within range to not applied. Icterus (test code = 0 g/dL N Referen ce range Icterus) changed due to change in patie nt's sex at 0 13:38:29. Norm al Low changed fro m 1 to not defined. Normal High dante nged from 2 to not defined. Resul t flag changed fr om within range to not applied. Lipemia (test code = 0 g/dL N Referen ce range Lipemia) changed due to change in patie nt's sex at 0 13:38:29. Norm al Low changed fro m 1 to not defined. Normal High dante nged from 2 to not defined. Resul t flag changed fr om within range to not applied. Prothrombin Time and [id number] 17:12:45 Test Item Value Reference Range Interpretation Comments Prothrombin Time (test code = 10.4 seconds 9.8-13.4 Prothrombin Time) INR (test code = INR) 0.9 ratio 0.6-1.2 XR Chest 2 [id number] 16:57:30Patient: CHRISTIANA AMIN Date/Time12/05/2019 16:48 CDTReason for ExampreopReportEXAM: CHEST 2 VIEWSINDICATION: PREOPCOMPARISON: None availableTEC HNIQUE: PA and lateral views of the chest.FINDINGS:There is a right-sided chemotherapy port noted inplace. The cardiomediastinal silhouette is normal. There are multiple nodules noted throughout both lungs, worse on the right concerning for metastatic disease. No pneumothorax or pleural effusion is id entified. The osseous structures are unremarkable.IMPRESSION:Multiple nodular opacities overlying both lungs, worse on the right concerning for metastatic disease. Correlate clinically. Further evaluation with CT chest should be considered.LOCATION: R16 Final Dictated by: MD Gaines Melanie CDictated DT/TM: 12/05/2019 4:56 pmSigned by: MD Gaines Melanie CSigned (Electronic Signature): 12/05/2019 4:57 pmComplete Blood Count with [id number] 16:30:25 Test Item Value Reference Range Interpretation Comments WBC (test code = WBC) 11.0 x10 4.4-10.5 H RBC (test code = RBC) 4.09 x10 3.75-5.20 Hgb (test code = Hgb) 11.5 g/dL 12.2-14.8 L Hct (test code = Hct) 36.2 % 36.5-44.4 L MCV (test code = MCV) 88.50 fL 80.00-100.00 MCHC (test code = 31.80 g/dL 32.00-37.50 L MCHC) RDW CV (test code = 14.3 % 11.5-14.5 RDW CV) MCH (test code = MCH) 28.1 pg 27.0-32.5 Platelets (test code = 365.0 x10 140.0-440.0 Platelets) MPV (test code = MPV) 9.2 fL N Slide Review (test Auto Auto Result cr eated by code = Slide Review) GL_SJM_ SLIDE_REV_AUTO nRBC (test code = 0 N nRBC) NRBC Abs (test code = 0.00 x10 N NRBC Abs) Automated [id number] 16:30:25 Test Item Value Reference Range Interpretation Comments Neutro Auto (test code = Neutro 77.5 % 36.0-70.0 H Auto) Lymph Auto (test code = Lymph Auto) 16.3 % 12.0-44.0 Sully Auto (test code = Sully Auto) 4.5 % 0.0-11.0 Eos, Auto (test code = Eos, Auto) 0.9 % 0.0-7.0 Basophil Auto (test code = Basophil 0.5 % 0.0-2.0 Auto) Neutro Absolute (test code = Neutro 8.5 x10 1.6-7.4 H Absolute) Lymph Absolute (test code = Lymph 1.79 x10 .50-4.60 Absolute) Sully Absolute (test code = Sully .50 x10 .00-1.20 Absolute) Eos Absolute (test code = Eos 0.10 x10 0.00-0.74 Absolute) Baso Absolute (test code = Baso 0.06 x10 0.00-0.21 Absolute) IG [id number] 16:30:25 Test Item Value Reference Range Interpretation Comments IG (test code = IG) 0.3 % 0.0-5.0 IG Abs (test code = IG Abs) 0 x10 N Complete Blood Count with [id number] 16:30:25 Test Item Value Reference Range Interpretation Comments WBC (test code = WBC) 11.0 x10 4.4-10.5 H RBC (test code = RBC) 4.09 x10 4.10-5.70 L Refere nce range changed due to change in patient's se x at 13:38 :29. Normal Low luna ged from 3.75 to 4. 10. Normal High dante nged from 5.20 to 5. 70. Result flag dante nged from within ran ge to L. Hgb (test code = Hgb) 11.5 g/dL 13.4-17.4 L Refere nce range changed due to change in patient's se x at 13:38 :29. Normal Low luna ged from 12.2 to 13 .4. Normal High dante nged from 14.8 to 17 .4. Result flag not changed. Hct (test code = Hct) 36.2 % 38.7-52.0 L Refere nce range changed due to change in patient's se x at 13:38 :29. Normal Low luna ged from 36.5 to 38 .7. Normal High dante nged from 44.4 to 52 .0. Result flag not changed. MCV (test code = MCV) 88.50 fL 80.00-100.00 MCHC (test code = 31.80 g/dL 32.00-37.50 L MCHC) RDW CV (test code = 14.3 % 11.5-14.5 RDW CV) MCH (test code = MCH) 28.1 pg 27.0-32.5 Platelets (test code = 365.0 x10 140.0-440.0 Platelets) MPV (test code = MPV) 9.2 fL N Slide Review (test Auto Auto Result cr eated by code = Slide Review) GL_SJM_ SLIDE_REV_AUTO nRBC (test code = 0 N nRBC) NRBC Abs (test code = 0.00 x10 N NRBC Abs) Complete Blood Count with [id number] 16:30:25 Test Item Value Reference Range Interpretation Comments WBC (test code = WBC) 11.0 x10 4.4-10.5 H RBC (test code = RBC) 4.09 x10 3.75-5.20 Refere nce range changed due to change in patient's se x at 13:38 :29. Normal Low luna ged from 3.75 to 4. 10. Normal High dante nged from 5.20 to 5. 70. Result flag dante nged from within ran ge to L. Reference range changed due to change in patient's se x at 10:21 :02. Normal Low luna ged from 4.10 to 3. 75. Normal High dante nged from 5.70 to 5. 20. Result flag dante nged from L to withi n range. Hgb (test code = Hgb) 11.5 g/dL 12.2-14.8 L Refere nce range changed due to change in patient's se x at 13:38 :29. Normal Low luna ged from 12.2 to 13 .4. Normal High dante nged from 14.8 to 17 .4. Result flag not changed. Refe rence range changed d ue to change in patie nt's sex at 0 10:21:02. Norm al Low changed from 13 .4 to 12.2. Normal H igh changed from 17 .4 to 14.8. Result f lag not changed. MCV (test code = MCV) 88.50 fL 80.00-100.00 Hct (test code = Hct) 36.2 % 36.5-44.4 L Refere nce range changed due to change in patient's se x at 13:38 :29. Normal Low luna ged from 36.5 to 38 .7. Normal High dante nged from 44.4 to 52 .0. Result flag not changed. Refe rence range changed d ue to change in patie nt's sex at 0 10:21:02. Norm al Low changed from 38 .7 to 36.5. Normal H igh changed from 52 .0 to 44.4. Result f lag not changed. MCHC (test code = 31.80 g/dL 32.00-37.50 L MCHC) RDW CV (test code = 14.3 % 11.5-14.5 RDW CV) MCH (test code = MCH) 28.1 pg 27.0-32.5 Platelets (test code = 365.0 x10 140.0-440.0 Platelets) MPV (test code = MPV) 9.2 fL N Slide Review (test Auto Auto Result cr eated by code = Slide Review) GL_SJM_ SLIDE_REV_AUTO nRBC (test code = 0 N nRBC) NRBC Abs (test code = 0.00 x10 N NRBC Abs) IR [id number] 14:33:58Patient: CHRISTIANA AMIN Date/Time11/29/201909:48 CDTReason for ExamC18.9 C80.1ReportCHEST PORT PLACEMENT UNDER ULTRASOUND AND FLUOROSCOPIC FORTINO NCECLINICAL INDICATION: C18.9, C80.1OPERATOR: Blaine Cid M.D.MEDICATIONS: Ancef 1 g IVSEDATION: Under physician supervision, intravenous Versed and fentanyl were administered for moderate sedation. Pulse oximetry, heart rate, and blood pressure were continuously monitored by a dedicated IR trained nurse. The physician spent 30 minutes of continuous qivy-br-orxo sedation time with the patient.FLUOROSCOPY TIME: 0.3 minutes; Air Kerma: 2.2 mGyPROCEDURE:The risks and benefits of the procedure andconscious sedation were explained, informed consent was obtained. With the patient in the supine position, the right neck and upper chest were prepped and draped in the usual sterile fashion. All eleme nts of maximum barrier sterile technique were utilized. The skin and subcutaneous tissues overlying the internal jugular vein were infiltrated with 1% Lidocaine. Under ultrasound guidance, the patent internal jugular vein was successfully cannulated, and a picture was saved to the permanent record. A 0.018 wire was advanced centrally through the needle. The needle was exchanged for a 4 Malagasy coaxial sheath. The inner dilator and wire were removed, and a 0.035 wire was advanced into the inferior vena cava. A peel-away sheath was placed.Attention was turned to the creation of a subcutaneous pocket and tunnel. 1% Lidocaine was infiltrated on the chest wall along a 10 cm tract caudal and lateral to the initial venotomy site. A second dermatotomy was made. A pocket was bluntly dissected and flushed with antibiotic solution. The tunneling tool was passed, and the catheter was pulled through theinitial venotomy site. The catheter was cut to length. The catheter was advanced through the peel-away sheath and positioned centrally using fluoroscopy. The sheath was removed. The venotomy site was closed with Dermabond and Steri-Strips. The pocket was closed with 3-0 Vicryl, Dermabond, and Steri-Strips. The patient tolerated the procedure well and remained in stable condition throughout the stayin the angiography suite. The catheter port was flushed, heparinized, and a sterile dressing was applied.FINDINGS:Position: A final placement radiograph demonstrates the tip of the catheter at the junction of the SVC and right atrium.Complications: NoneIMPRESSION:Successful image-guided placement of a right chest port as described above.Location: R16 Final Dictated by: MD Cid AdamFDictated DT/TM: 11/29/2019 2:32 pmSigned by: MD Cid Adam FSigned (Electronic Signature): 11/29/2019 2:33 pmProthrombin Time and INR 2019-11-29 09:11:18 Test Item Value Reference Range Interpretation Comments Prothrombin Time (test code = 10.8 seconds 9.8-13.4 Prothrombin Time) INR (test code = INR) 1.0 ratio 0.6-1.2 Partial Thromboplastin [id number] 09:11:18 Test Item Value Reference Range Interpretation Comments Partial Thromboplastin Time 25.00 seconds 24.39-37.25 (test code = Partial Thromboplastin Time) Basic Metabolic [id number] 09:05:30 Test Item Value Reference Range Interpretation Comments Sodium Level (test code = Sodium 138.0 mmol/L 136.0-145.0 Level) Potassium Level (test code = 4.20 mmol/L 3.50-5.10 Potassium Level) Chloride Level (test code = 105.0 mmol/L 98.0-107.0 Chloride Level) CO2 (test code = CO2) 28 mmol/L 20-31 Anion Gap (test code = Anion 5.1 mmol/L 5.0-15.0 Gap) BUN (test code = BUN) 16 mg/dL 9-23 Creatinine Level (test code = 0.75 mg/dL 0.55-1.02 Creatinine Level) BUN/Creat Ratio (test code = 21.3 ratio 10.0-20.0 H BUN/Creat Ratio) Glucose Level (test code = 100 mg/dL 74-106 Glucose Level) Calcium Level (test code = 9.1 mg/dL 8.3-10.6 Calcium Level) Hemolysis (test code = 0 mg/dL 8-11 Hemolysis) Icterus (test code = Icterus) 0 mg/dL 8-11 Lipemia (test code = Lipemia) 0 mg/dL 8-11 Basic Metabolic [id number] 09:05:30 Test Item Value Reference Range Interpretation Comments Sodium Level (test 138.0 mmol/L 136.0-145.0 code = Sodium Level) Potassium Level 4.20 mmol/L 3.50-5.10 (test code = Potassium Level) Chloride Level (test 105.0 mmol/L 98.0-107.0 code = Chloride Level) CO2 (test code = 28 mmol/L 20-31 CO2) Anion Gap (test code 5.1 mmol/L 5.0-15.0 = Anion Gap) BUN (test code = 16 mg/dL 9-23 BUN) Creatinine Level 0.75 mg/dL 0.55-1.02 (test code = Creatinine Level) BUN/Creat Ratio 21.3 ratio 10.0-20.0 H (test code = BUN/Creat Ratio) Glucose Level (test 100 mg/dL 74-106 code = Glucose Level) Calcium Level (test 9.1 mg/dL 8.3-10.6 code = Calcium Level) eGFR AA (test code = >60 >=60 eGFR (e stimated eGFR AA) mL/min/1.73 m2 Glomerular Filtration Rate ) is an estimated va lue, calculated from the patient's serum creatinine usin g the MDRD equation. It is NOT the patient 's actual GFR. The eGFR provides a more clinically usef ul measure of kidn ey disease than se rum creatinine alone.This calculation radha es sex and race in to account, if the information is provided. If th e race is not provided, and t he patient is -Johanna n, multiply by 1.2 12. If sex is not provided, and t he patient is fema le, multiply by 0.7 42. Results for pat ients <18 years of ag e have not been validated by th e MDRD study and should be interpreted wit h caution. eGFR R esult Interpretation: eGFR > or = 60 is in the Normal RangeeGF R < 60 may mean kid lorin diseaseeGFR < 1 5 may mean kidney failure Rang es recommended by the National Kid[employer] Foundation, http://nkdep.ni h.gov Hemolysis (test code 0 mg/dL 8-11 = Hemolysis) Icterus (test code = 0 mg/dL 8-11 Icterus) Lipemia (test code = 0 mg/dL 8-11 Lipemia) Basic Metabolic [id number] 09:05:30 Test Item Value Reference Range Interpretation Comments Sodium Level (test 138.0 mmol/L 136.0-145.0 code = Sodium Level) Potassium Level 4.20 mmol/L 3.50-5.10 (test code = Potassium Level) Chloride Level (test 105.0 mmol/L 98.0-107.0 code = Chloride Level) CO2 (test code = 28 mmol/L 20-31 CO2) Anion Gap (test code 5.1 mmol/L 5.0-15.0 = Anion Gap) BUN (test code = 16 mg/dL 9-23 BUN) Creatinine Level 0.75 mg/dL 0.55-1.02 (test code = Creatinine Level) BUN/Creat Ratio 21.3 ratio 10.0-20.0 H (test code = BUN/Creat Ratio) Glucose Level (test 100 mg/dL 74-106 code = Glucose Level) Calcium Level (test 9.1 mg/dL 8.3-10.6 code = Calcium Level) eGFR AA (test code = >60 >=60 eGFR (e stimated eGFR AA) mL/min/1.73 m2 Glomerular Filtration Rate ) is an estimated va lue, calculated from the patient's serum creatinine usin g the MDRD equation. It is NOT the patient 's actual GFR. The eGFR provides a more clinically usef ul measure of kidn ey disease than se rum creatinine alone.This calculation radha es sex and race in to account, if the information is provided. If th e race is not provided, and t he patient is -Johanna n, multiply by 1.2 12. If sex is not provided, and t he patient is fema le, multiply by 0.7 42. Results for pat ients <18 years of ag e have not been validated by th e MDRD study and should be interpreted wit h caution. eGFR R esult Interpretation: eGFR > or = 60 is in the Normal RangeeGF R < 60 may mean kid lorin diseaseeGFR < 1 5 may mean kidney failure Rang es recommended by the National Kidney Foundation, http://nkdep.ni h.gov eGFR Non-AA (test >60.00 >=60.00 eGFR (nataly mated code = eGFR Non-AA) mL/min/1.73 m2 Glomer ular Filtration Rate ) is an estimated va lue, calculated from the patient's serum creatinine usin g the MDRD equation. It is NOT the patient 's actual GFR. The eGFR provides a more clinically usef ul measure of kidn ey disease than se rum creatinine alone.This calculation radha es sex and race in to account, if the information is provided. If th e race is not provided, and t he patient is -Johanna n, multiply by 1.2 12. If sex is not provided, and t he patient is fema le, multiply by 0.7 42. Results for pat ients <18 years of ag e have not been validated by th e MDRD study and should be interpreted wit h caution. eGFR R esult Interpretation: eGFR > or = 60 is in the Normal RangeeGF R < 60 may mean kid lorin diseaseeGFR < 1 5 may mean kidney failure Rang es recommended by the National Kidney Foundation, http://nkdep.ni h.gov Hemolysis (test code 0 mg/dL 8-11 = Hemolysis) Icterus (test code = 0 mg/dL 8-11 Icterus) Lipemia (test code = 0 mg/dL 8-11 Lipemia) Basic Metabolic [id number] 09:05:30 Test Item Value Reference Range Interpretation Comments Sodium Level (test 138.0 mmol/L 136.0-145.0 code = Sodium Level) Potassium Level 4.20 mmol/L 3.50-5.10 (test code = Potassium Level) Chloride Level (test 105.0 mmol/L 98.0-107.0 code = Chloride Level) CO2 (test code = 28 mmol/L 20-31 CO2) Anion Gap (test code 5.1 mmol/L 5.0-15.0 = Anion Gap) BUN (test code = 16 mg/dL 9-23 BUN) Creatinine Level 0.75 mg/dL 0.70-1.30 Reference r sarah (test code = changed due to Creatinine Level) change in patient's sex at 0 13:38:30. Norm al Low changed fro m 0.55 to 0.70. Normal High dante nged from 1.02 to 1. 30. Result flag not changed. BUN/Creat Ratio 21.3 ratio 10.0-20.0 H (test code = BUN/Creat Ratio) Glucose Level (test 100 mg/dL 74-106 code = Glucose Level) Calcium Level (test 9.1 mg/dL 8.3-10.6 code = Calcium Level) eGFR AA (test code = >60 >=60 eGFR (e stimated eGFR AA) mL/min/1.73 m2 Glomerular Filtration Rate ) is an estimated va lue, calculated from the patient's serum creatinine usin g the MDRD equation. It is NOT the patient 's actual GFR. The eGFR provides a more clinically usef ul measure of kidn ey disease than se rum creatinine alone.This calculation radha es sex and race in to account, if the information is provided. If th e race is not provided, and t he patient is -Johanna n, multiply by 1.2 12. If sex is not provided, and t he patient is fema le, multiply by 0.7 42. Results for pat ients <18 years of ag e have not been validated by [facility] MDRD study and should be interpreted wit h caution. eGFR R esult Interpretation: eGFR > or = 60 is in the Normal RangeeGF R < 60 may mean kid lorin diseaseeGFR < 1 5 may mean kidney failure Rang es recommended by the National Kidney Foundation, http://nkdep.ni h.gov eGFR Non-AA (test >60.00 >=60.00 eGFR (nataly mated code = eGFR Non-AA) mL/min/1.73 m2 Glomer ular Filtration Rate ) is an estimated va lue, calculated from the patient's serum creatinine usin g the MDRD equation. It is NOT the patient 's actual GFR. The eGFR provides a more clinically usef ul measure of kidn ey disease than se rum creatinine alone.This calculation radha es sex and race in to account, if the information is provided. If th e race is not provided, and t he patient is -Johanna n, multiply by 1.2 12. If sex is not provided, and t he patient is fema le, multiply by 0.7 42. Results for pat ients <18 years of ag e have not been validated by [facility] MDRD study and should be interpreted wit h caution. eGFR R esult Interpretation: eGFR > or = 60 is in the Normal RangeeGF R < 60 may mean kid lorin diseaseeGFR < 1 5 may mean kidney failure Rang es recommended by the National Kidney Foundation, http://nkdep.ni h.gov Hemolysis (test code 0 mg/dL N Referen ce range = Hemolysis) changed due to change in patie nt's sex at 0 13:38:30. Norm al Low changed fro m 8 to not defined. Normal High dante nged from 11 to not defined. Resul t flag changed fr om within range to not applied. Criti janene flag changed du e to change of sex a t 13:38 :30. Critical flag changed from wi thin range to not applied. Icterus (test code = 0 mg/dL N Referen ce range Icterus) changed due to change in patie nt's sex at 0 13:38:30. Norm al Low changed fro m 8 to not defined. Normal High dante nged from 11 to not defined. Resul t flag changed fr om within range to not applied. Criti janene flag changed du e to change of sex a t 13:38 :30. Critical flag changed from wi thin range to not applied. Lipemia (test code = 0 mg/dL N Referen ce range Lipemia) changed due to change in patie nt's sex at 0 13:38:30. Norm al Low changed fro m 8 to not defined. Normal High dante nged from 11 to not defined. Resul t flag changed fr om within range to not applied. Criti janene flag changed du e to change of sex a t 13:38 :30. Critical flag changed from wi thin range to not applied. Basic Metabolic [id number] 09:05:30 Test Item Value Reference Range Interpretation Comments Sodium Level (test 138.0 mmol/L 136.0-145.0 code = Sodium Level) Potassium Level 4.20 mmol/L 3.50-5.10 (test code = Potassium Level) Chloride Level (test 105.0 mmol/L 98.0-107.0 code = Chloride Level) CO2 (test code = 28 mmol/L 20-31 CO2) Anion Gap (test code 5.1 mmol/L 5.0-15.0 = Anion Gap) BUN (test code = 16 mg/dL 9-23 BUN) Creatinine Level 0.75 mg/dL 0.55-1.02 Reference r sarah (test code = changed due to Creatinine Level) change in patient's sex at 0 13:38:30. Norm al Low changed fro m 0.55 to 0.70. Normal High dante nged from 1.02 to 1. 30. Result flag not changed. Refe rence range changed d ue to change in patie nt's sex at 0 10:21:03. Norm al Low changed fro m 0.70 to 0.55. Normal High dante nged from 1.30 to 1. 02. Result flag not changed. BUN/Creat Ratio 21.3 ratio 10.0-20.0 H (test code = BUN/Creat Ratio) Glucose Level (test 100 mg/dL 74-106 code = Glucose Level) Calcium Level (test 9.1 mg/dL 8.3-10.6 code = Calcium Level) eGFR AA (test code = >60 >=60 eGFR (e stimated eGFR AA) mL/min/1.73 m2 Glomerular Filtration Rate ) is an estimated va lue, calculated from the patient's serum creatinine usin g the MDRD equation. It is NOT the patient 's actual GFR. The eGFR provides a more clinically usef ul measure of kidn ey disease than se rum creatinine alone.This calculation radha es sex and race in to account, if the information is provided. If th e race is not provided, and t he patient is -Johanna n, multiply by 1.2 12. If sex is not provided, and t he patient is fema le, multiply by 0.7 42. Results for pat ients <18 years of ag e have not been validated by th e MDRD study and should be interpreted wit h caution. eGFR R esult Interpretation: eGFR > or = 60 is in the Normal RangeeGF R < 60 may mean kid lorin diseaseeGFR < 1 5 may mean kidney failure Rang es recommended by the National Kidney Foundation, http://nkdep.ni h.gov eGFR Non-AA (test >60.00 >=60.00 eGFR (nataly mated code = eGFR Non-AA) mL/min/1.73 m2 Glomer ular Filtration Rate ) is an estimated va lue, calculated from the patient's serum creatinine usin g the MDRD equation. It is NOT the patient 's actual GFR. The eGFR provides a more clinically usef ul measure of kidn ey disease than se rum creatinine alone.This calculation radha es sex and race in to account, if the information is provided. If th e race is not provided, and t he patient is -Johanna n, multiply by 1.2 12. If sex is not provided, and t he patient is fema le, multiply by 0.7 42. Results for pat ients <18 years of ag e have not been validated by th e MDRD study and should be interpreted wit h caution. eGFR R esult Interpretation: eGFR > or = 60 is in the Normal RangeeGF R < 60 may mean kid lorin diseaseeGFR < 1 5 may mean kidney failure Rang es recommended by the National Kidney Foundation, http://nkdep.ni h.gov Hemolysis (test code 0 mg/dL N Referen ce range = Hemolysis) changed due to change in patie nt's sex at 0 13:38:30. Norm al Low changed fro m 8 to not defined. Normal High dante nged from 11 to not defined. Resul t flag changed fr om within range to not applied. Criti janene flag changed du e to change of sex a t 13:38 :30. Critical flag changed from wi thin range to not applied. Icterus (test code = 0 mg/dL N Referen ce range Icterus) changed due to change in patie nt's sex at 0 13:38:30. Norm al Low changed fro m 8 to not defined. Normal High dante nged from 11 to not defined. Resul t flag changed fr om within range to not applied. Criti janene flag changed du e to change of sex a t 13:38 :30. Critical flag changed from wi thin range to not applied. Lipemia (test code = 0 mg/dL N Referen ce range Lipemia) changed due to change in patie nt's sex at 0 13:38:30. Norm al Low changed fro m 8 to not defined. Normal High dante nged from 11 to not defined. Resul t flag changed fr om within range to not applied. Criti janene flag changed du e to change of sex a t 13:38 :30. Critical flag changed from wi thin range to not applied. Complete Blood Count with [id number] 08:53:20 Test Item Value Reference Range Interpretation Comments WBC (test code = WBC) 10.8 x10 4.4-10.5 H RBC (test code = RBC) 4.41 x10 3.75-5.20 Hgb (test code = Hgb) 11.9 g/dL 12.2-14.8 L Hct (test code = Hct) 39.4 % 36.5-44.4 MCV (test code = MCV) 89.30 fL 80.00-100.00 MCHC (test code = 30.20 g/dL 32.00-37.50 L MCHC) RDW CV (test code = 14.3 % 11.5-14.5 RDW CV) MCH (test code = MCH) 27.0 pg 27.0-32.5 Platelets (test code = 383.0 x10 140.0-440.0 Platelets) MPV (test code = MPV) 9.0 fL N Slide Review (test Auto Auto Result cr eated by code = Slide Review) GL_SJM_ SLIDE_REV_AUTO nRBC (test code = 0 N nRBC) NRBC Abs (test code = 0.00 x10 N NRBC Abs) Automated [id number] 08:53:20 Test Item Value Reference Range Interpretation Comments Neutro Auto (test code = Neutro 80.1 % 36.0-70.0 H Auto) Lymph Auto (test code = Lymph Auto) 13.9 % 12.0-44.0 Sully Auto (test code = Sully Auto) 4.3 % 0.0-11.0 Eos, Auto (test code = Eos, Auto) 0.8 % 0.0-7.0 Basophil Auto (test code = Basophil 0.6 % 0.0-2.0 Auto) Neutro Absolute (test code = Neutro 8.7 x10 1.6-7.4 H Absolute) Lymph Absolute (test code = Lymph 1.51 x10 .50-4.60 Absolute) Sully Absolute (test code = Sully .47 x10 .00-1.20 Absolute) Eos Absolute (test code = Eos 0.09 x10 0.00-0.74 Absolute) Baso Absolute (test code = Baso 0.07 x10 0.00-0.21 Absolute) IG [id number] 08:53:20 Test Item Value Reference Range Interpretation Comments IG (test code = IG) 0.3 % 0.0-5.0 IG Abs (test code = IG Abs) 0 x10 N Complete Blood Count with [id number] 08:53:20 Test Item Value Reference Range Interpretation Comments WBC (test code = WBC) 10.8 x10 4.4-10.5 H RBC (test code = RBC) 4.41 x10 4.10-5.70 Refere nce range changed due to change in patient's se x at 13:38 :30. Normal Low luna ged from 3.75 to 4. 10. Normal High dante nged from 5.20 to 5. 70. Result flag not changed. Hgb (test code = Hgb) 11.9 g/dL 13.4-17.4 L Refere nce range changed due to change in patient's se x at 13:38 :30. Normal Low luna ged from 12.2 to 13 .4. Normal High dante nged from 14.8 to 17 .4. Result flag not changed. MCV (test code = MCV) 89.30 fL 80.00-100.00 Hct (test code = Hct) 39.4 % 38.7-52.0 Refere nce range changed due to change in patient's se x at 13:38 :30. Normal Low luna ged from 36.5 to 38 .7. Normal High dante nged from 44.4 to 52 .0. Result flag not changed. MCHC (test code = 30.20 g/dL 32.00-37.50 L MCHC) RDW CV (test code = 14.3 % 11.5-14.5 RDW CV) MCH (test code = MCH) 27.0 pg 27.0-32.5 Platelets (test code = 383.0 x10 140.0-440.0 Platelets) MPV (test code = MPV) 9.0 fL N Slide Review (test Auto Auto Result cr eated by code = Slide Review) GL_SJM_ SLIDE_REV_AUTO nRBC (test code = 0 N nRBC) NRBC Abs (test code = 0.00 x10 N NRBC Abs) Complete Blood Count with [id number] 08:53:20 Test Item Value Reference Range Interpretation Comments WBC (test code = WBC) 10.8 x10 4.4-10.5 H RBC (test code = RBC) 4.41 x10 3.75-5.20 Refere nce range changed due to change in patient's se x at 13:38 :30. Normal Low luna ged from 3.75 to 4. 10. Normal High dante nged from 5.20 to 5. 70. Result flag not changed. Refe rence range changed d ue to change in patie nt's sex at 0 10:21:03. Norm al Low changed from 4. 10 to 3.75. Normal H igh changed from 5. 70 to 5.20. Result f lag not changed. Hgb (test code = Hgb) 11.9 g/dL 12.2-14.8 L Refere nce range changed due to change in patient's se x at 13:38 :30. Normal Low luna ged from 12.2 to 13 .4. Normal High dante nged from 14.8 to 17 .4. Result flag not changed. Refe rence range changed d ue to change in patie nt's sex at 0 10:21:03. Norm al Low changed from 13 .4 to 12.2. Normal H igh changed from 17 .4 to 14.8. Result f lag not changed. Hct (test code = Hct) 39.4 % 36.5-44.4 Refere nce range changed due to change in patient's se x at 13:38 :30. Normal Low luna ged from 36.5 to 38 .7. Normal High dante nged from 44.4 to 52 .0. Result flag not changed. Refe rence range changed d ue to change in patie nt's sex at 0 10:21:03. Norm al Low changed from 38 .7 to 36.5. Normal H igh changed from 52 .0 to 44.4. Result f lag not changed. MCV (test code = MCV) 89.30 fL 80.00-100.00 MCHC (test code = 30.20 g/dL 32.00-37.50 L MCHC) RDW CV (test code = 14.3 % 11.5-14.5 RDW CV) MCH (test code = MCH) 27.0 pg 27.0-32.5 Platelets (test code = 383.0 x10 140.0-440.0 Platelets) MPV (test code = MPV) 9.0 fL N Slide Review (test Auto Auto Result cr eated by code = Slide Review) GL_SJM_ SLIDE_REV_AUTO nRBC (test code = 0 N nRBC) NRBC Abs (test code = 0.00 x10 N NRBC Abs) - XR ABD ACUTE [id number] 22:44:00 Name: CHRISTIANA AMIN [facility] : 1950 Age/S: 69 / F [id number] Unit #: [id number] Loc: [place] [address] Phys: Raoul Fraser MD Acct: [id number] Dis Date: Status: REG ER PHONE #: [phone] Exam Date: 11/07/2019 0334 FAX #: Reason: diffuse abd pain, constipation EXAMS: CPT: [id number] XR ABD ACUTE W/CHEST 35289 Fluoro Time: DAP (Gy m2): Air Kerma (mGy): Location: H3 Abdominal series x-ray exam, 5 views including imaging of the chest conducted on 11/07/19 Comparison exam: None relevant to this study CLINICAL HISTORY: Diffuse abdominal pain constipation in this 69-year-old. There are multiple noncalcified pulmonary nodules of concern possibly hematogenously spread metastatic disease. Chest CT exam is advised. COPD is identified. No infiltrates in the lungs or active CHF. Heart size is within normal limits. Bowel gas pattern is nonobstructed. There is moderate degree of constipation at leastespecially in the distal colon without definite free air or pneumatosis. No definite fecal impaction. IMPRESSION: Constipation without definite fecal impaction wi thout definite pneumatosis/pneumoperitoneum Multiple noncalcified pulmonary nodules of concern for hematogenously spread metastatic disease. Dedicated chest CT exam isadvised COPD at 2244 Reported and signed by: Sofia Connolly M.D. CC: Nona Gastelum MD PAGE 1 Signed Report Name: CHRISTIANA AMIN [place] : 1950 Age/S: 69 / F [address] Unit #: [id number] Loc: [place] [address] Phys: Raoul Fraser MD Acct: [id number] Dis Date: Status: REG ER PHONE #: [phone] Exam Date: 11/07/20192229 FAX #: Reason: diffuse abd pain, constipation EXAMS: CPT: [id number] XR ABD ACUTE W/CHEST 39357 Fluoro Time: DAP (Gy m2): Air Kerma (mGy): <Continued> Technologist: Vashti Candelaria, RT(R)(CT) Trnscb Date/Time: 11/07/2019 (2243) [email or web address] Orig Print D/T: S: 11/07/2019 (5814) PAGE 2 Signed ReportBASIC METABOLIC PANEL 2019-11-07 22:35:00 Test Item Value Reference Range Interpretation Comments SODIUM (test code = NA) 136 mmol/L 134-147 N POTASSIUM (test code = 3.6 mmol/L 3.4-5.0 N K) CHLORIDE (test code = 102 mmol/L 100-108 N CL) CARBON DIOXIDE (test 31 mmol/L 21-32 N code = CO2) ANION GAP (test code = 3.0 GAP calc 4.0-15.0 L GAP) GLUCOSE (test code = 99 MG/DL 70-110 N GLU) BLOOD UREA NITROGEN 13 MG/DL 7-18 N (test code = BUN) GLOMERULAR FILTRATION >=60 max estimate >60 RATE (test code = GFR) estGFR CREATININE (test code = 0.8 MG/DL 0.6-1.0 N CREAT) CALCIUM (test code = CA) 9.4 MG/DL 8.5-10.1 N HEPATIC FUNCTION [id number] 22:35:00 Test Item Value Reference Range Interpretation Comments TOTAL PROTEIN (test code = PROT) 7.5 G/DL 6.4-8.2 N ALBUMIN (test code = ALB) 3.7 G/DL 3.4-5.0 N BILIRUBIN TOTAL (test code = BILT) 0.60 MG/DL 0.2-1.2 N BILIRUBIN DIRECT (test code = 0.10 MG/DL 0.00-0.30 N BILD) BILIRUBIN INDIRECT (test code = 0.50 MG/DL 0.2-1.2 N BILIND) SGOT/AST (test code = AST) 15 Unit/L 15-37 N SGPT/ALT (test code = ALT) 15 Unit/L 12-78 N ALKALINE PHOSPHATASE TOTAL (test 104 Unit/L 45-117 N code = ALKP) [id number] 22:35:00 Test Item Value Reference Range Interpretation Comments LIPASE (test code = LIP) 125 Unit/L 114-286 N CBC W/AUTO [id number] 22:21:00 Test Item Value Reference Range Interpretation Comments WHITE BLOOD CELL (test code = 11.1 K/mm3 3.5-11.0 H WBC) RED BLOOD CELL (test code = 4.25 M/mm3 4.70-6.10 L RBC) HEMOGLOBIN (test code = HGB) 11.9 G/DL 10.4-14.9 N HEMATOCRIT (test code = HCT) 37.4 % 31.5-44.1 N MEAN CELL VOLUME (test code = 88.0 Fl 84.5-98.6 N MCV) MEAN CELL HGB (test code = MCH) 28.0 pg 27.0-34.2 N MEAN CELL HGB CONCETRATION 31.8 G/DL 31.5-34.0 N (test code = MCHC) RED CELL DISTRIBUTION WIDTH 14.3 SD 11.5-14.5 N (test code = RDW) PLATELET COUNT (test code = 346 K/mm3 150-450 N PLT) MEAN PLATELET VOLUME (test code 8.70 fL 7.0-10.5 N = MPV) NEUTROPHIL % (test code = NT%) 73.1 % 40-76 N IMMATURE GRANULOCYTE % (test 0.4 % 0.0-5.0 N code = IG%) LYMPHOCYTE % (test code = LY%) 18.8 % 20.5-51.1 L MONOCYTE % (test code = MO%) 5.6 % 1.7-9.3 N EOSINOPHIL % (test code = EO%) 1.5 % 0.0-6.0 N BASOPHIL % (test code = BA%) 0.6 % 0.0-2.0 N NUCLEATED RBC % (test code = 0.0 /100WBC% 0.0-1.0 N NRBC%) NEUTROPHIL # (test code = NT#) 8.1 K/mm3 1.8-7.6 H IMMATURE GRANULOCYTE # (test 0.04 x10 3/uL 0.00-0.03 H code = IG#) LYMPHOCYTE # (test code = LY#) 2.1 K/mm3 0.6-3.2 N MONOCYTE # (test code = MO#) 0.6 K/mm3 0.3-1.1 N EOSINOPHIL # (test code = EO#) 0.2 K/mm3 0.0-0.4 N BASOPHIL # (test code = BA#) 0.1 K/mm3 0.0-0.1 N NUCLEATED RBC # (test code = 0.0 K/mm3 0.0-0.1 N NRBC#) MANUAL DIFF REQUIRED (test code NO DIFF/SCN CRITERIA = MDIFF)
[2020-02-08 13:13] LABS: Absolute Lymphocytes (CBC) 0.5 K/uL (0.7-4.9); Basophils % 0.6 % (0-1.3); Lymphocytes % 26.8 % (15.3-44.8); MPV 7.8 fL (7.6-11.3); Protime INR 1.04; RBC Red Blood Cell Count 4.88 M/uL (3.86-4.86)
--- NOTE | 2020-02-08 13:22 | RAD REPORT ---
EXAM DESCRIPTION: RAD - Chest Single View - 02/08/2020 1:05 pm CLINICAL HISTORY: COUGH Chest pain. COMPARISON: Chest Abdomen Pelvis W Cont dated 10/16/2019 FINDINGS: Portable technique limits examination quality. The lungs are emphysematous but grossly clear. The heart is normal in size. Right-sided port catheter tip in the SVC. IMPRESSION: COPD.
[2020-02-08] MEDS ORDERED: NA CHLORIDE 0.9% 1,000 ML ONE (13:27)
[2020-02-08 13:32] LABS: ALT/SGPT 14 U/L (12-78); AST/SGOT 14 U/L (15-37); Albumin 2.9 g/dL (3.4-5.0); Alkaline Phosphatase 164 U/L (45-117); BUN Blood Urea Nitrogen 22 mg/dL (7-18); Bicarbonate 24 mmol/L (21-32); Bilirubin Direct 0.1 mg/dL (0-0.2); Bilirubin Total 0.6 mg/dL (0.2-1.0); Glucose Level 108 mg/dL (74-106); Lipase 77 U/L (73-393); Magnesium 2.2 mg/dL (1.8-2.4); NT PRO-BNP 453 pg/mL (<125); Protein, Total 5.9 g/dL (6.4-8.2); Sodium Level 133 mmol/L (136-145); Troponin (Emerg Dept Use Only) < 0.02 ng/mL (0.0-0.045)
[2020-02-08 13:50] LABS: Potassium 2.6 mmol/L (3.5-5.1)
--- NOTE | 2020-02-08 14:05 | EDPHYS ---
Physician Documentation [facility] Name: Jessa Aranda Age: 70 yrs Sex: Female : 1950 Arrival Date: 02/08/2020 Time: 11:43 Bed 24 Private MD: JOÃO Physician Darrin Beckwith HPI: 02/07 13:35 This 70 yrs old Female presents to ER via Wheelchair with complaints of dante General Weakness. 13:35 The patient presents to the emergency department with nausea, vomiting, that is dante intermittent, diarrhea, that is continuous. Onset: The symptoms/episode began/occurred 3 day(s) ago. Possible causes: hx of colon cancer, colostomy, weakness. The symptoms are aggravated by movement, food , The symptoms are alleviated by nothing. remaining still. Associated signs and symptoms: Pertinent positives: diarrhea, nausea. Onset: The symptoms/episode began/occurred 2 week(s) ago. Onset: The symptoms/episode began/occurred. Severity of symptoms: At their worst the symptoms were moderate in the emergency department the symptoms are unchanged. The patient has experienced similar episodes in the past, multiple times. Historical: - PMHx: 13:42 chemo treatment for colon cancer; jd3 - PSHx: 13:42 partial hysterectomy; jd3 - Immunization history:: Adult Immunizations unknown. - Social history:: Smoking status: unknown. - Family history:: not pertinent. ROS: 13:35 Constitutional: Negative for fever, chills, and weight loss, Eyes: Negative for injury, dante pain, redness, and discharge, ENT: Negative for injury, pain, and discharge, Neck: Negative for injury, pain, and swelling, Cardiovascular: Negative for chest pain, palpitations, and edema, Respiratory: Negative for shortness of breath, cough, wheezing, and pleuritic chest pain, Back: Negative for injury and pain, : Negative for injury, bleeding, discharge, and swelling, MS/Extremity: Negative for injury and deformity, Skin: Negative for injury, rash, and discoloration, Psych: Negative for depression, anxiety, suicide ideation, homicidal ideation, and hallucinations, Allergy/Immunology: Negative for hives, rash, and allergies, Endocrine: Negative for neck swelling, polydipsia, polyuria, polyphagia, and marked weight changes, Hematologic/Lymphatic: Negative for swollen nodes, abnormal bleeding, and unusual bruising. 13:35 Abdomen/GI: Positive for nausea and vomiting, diarrhea. 13:35 Neuro: Positive for dizziness, weakness. Exam: 13:35 Constitutional: This is a well developed, well nourished patient who is awake, alert, dante and in no acute distress. Head/Face: Normocephalic, atraumatic. Eyes: Pupils equal round and reactive to light, extra-ocular motions intact. Lids and lashes normal. Conjunctiva and sclera are non-icteric and not injected. Cornea within normal limits. Periorbital areas with no swelling, redness, or edema. ENT: Nares patent. No nasal discharge, no septal abnormalities noted. Tympanic membranes are normal and external auditory canals are clear. Oropharynx with no redness, swelling, or masses, exudates, or evidence of obstruction, uvula midline. Mucous membranes moist. Neck: Trachea midline, no thyromegaly or masses palpated, and no cervical lymphadenopathy. Supple, full range of motion without nuchal rigidity, or vertebral point tenderness. No Meningismus. Chest/axilla: Normal chest wall appearance and motion. Nontender with no deformity. No lesions are appreciated. Cardiovascular: Regular rate and rhythm with a normal S1 and S2. No gallops, murmurs, or rubs. Normal PMI, no JVD. No pulse deficits. Respiratory: Lungs have equal breath sounds bilaterally, clear to auscultation and percussion. No rales, rhonchi or wheezes noted. No increased work of breathing, no retractions or nasal flaring. Abdomen/GI: Soft, non-tender, with normal bowel sounds. No distension or tympany. No guarding or rebound. No evidence of tenderness throughout. Scaphoid abd Back: No spinal tenderness. No costovertebral tenderness. Full range of motion. Skin: Warm, dry with normal turgor. Normal color with no rashes, no lesions, and no evidence of cellulitis. MS/ Extremity: Pulses equal, no cyanosis. Neurovascular intact. Full, normal range of motion. Neuro: Awake and alert, GCS 15, oriented to person, place, time, and situation. Cranial nerves II-XII grossly intact. Motor strength 5/5 in all extremities. Sensory grossly intact. Cerebellar exam normal. Normal gait. Psych: Awake, alert, with orientation to person, place and time. Behavior, mood, and affect are within normal limits. 13:58 ECG was reviewed by the Attending Physician. [facility] Vital Signs: 12:23 BP 87 / 64; Pulse 89; Resp 18; Temp 97.4; Pulse Ox 99% on R/A; Weight 33.57 kg (R); iw Height 5 ft. 4 in. (162.56 cm); Pain 5/10; 13:41 BP 92 / 62; Pulse 78; Resp 18 S; Pulse Ox 100% on R/A; jd3 14:41 BP 94 / 67; Pulse 67; Resp 17 S; Pulse Ox 100% on R/A; jd3 15:10 BP 98 / 67; Pulse 60; Resp 16 S; Pulse Ox 100% on R/A; jd3 16:02 BP 116 / 70; Pulse 61; Resp 18; Pulse Ox 100% on R/A; aj1 17:30 BP 94 / 65; Pulse 84; Resp 18; Pulse Ox 100% on R/A; aj1 19:01 BP 98 / 66; Pulse 61; Resp 18; Pulse Ox 100% on R/A; aj1 20:08 BP 107 / 65; Pulse 60; Resp 18; Pulse Ox 97% on R/A; aj1 12:23 Body Mass Index 12.70 (33.57 kg, 162.56 cm) iw MDM: 12:12 Patient medically screened. dante 13:57 Differential diagnosis: Nonspecific abd pain, gastritis, viral gastroenteritis, dante gastroenteritis. Data reviewed: vital signs, nurses notes, lab test result(s), EKG, radiologic studies, plain films. Data interpreted: historiography professor: rate is 78 beats/min, Pulse oximetry: on room air is 100 %. Test interpretation: by ED physician or midlevel provider: ECG, plain radiologic studies. Counseling: I had a detailed discussion with the patient and/or guardian regarding: the historical points, exam findings, and any diagnostic results supporting the discharge/admit diagnosis, lab results, radiology results, the need for further work-up and treatment in the hospital. 02/07 12:13 Order name: Basic Metabolic Panel; Complete Time: 14:[address] [facility] 02/07 12:13 Order name: CBC with Diff [facility] 02/07 12:13 Order name: LFT's; Complete Time: 14:[address] [facility] 02/07 12:13 Order name: Magnesium; Complete Time: 14:[address] [facility] 02/07 12:13 Order name: NT PRO-BNP; Complete Time: 14:[address] [facility] 02/07 12:13 Order name: PT-INR [facility] 02/07 12:13 Order name: Troponin (emerg Dept Use Only); Complete Time: 14:[address] [facility] 02/07 12:13 Order name: XRAY Chest (1 view); Complete Time: 14:[address] [facility] 02/07 12:13 Order name: Lipase; Complete Time: 14:[address] [facility] 02/07 14:02 Order name: Phosphorus [facility] 02/07 17:51 Order name: Manual Differential EDMS 02/07 12:13 Order name: EKG; Complete Time: 12:[address] [facility] 02/07 12:13 Order name: Cardiac monitoring; Complete Time: 12:[address] [facility] 02/07 12:13 Order name: EKG - Nurse/Tech; Complete Time: 12:[address] [facility] 02/07 12:13 Order name: IV Saline Lock; Complete Time: 12:[address] [facility] 02/07 12:13 Order name: Labs collected and sent; Complete Time: 12:[address] [facility] 02/07 12:13 Order name: O2 Per Protocol; Complete Time: 12:[address] [facility] 02/07 12:13 Order name: O2 Sat Monitoring; Complete Time: 12:[address] [facility] EC:58 Rate is 83 beats/min. Rhythm is regular. QRS [place] is Normal. [place] interval is normal. QRS dante interval is normal. No Q waves. T waves are Normal. ST Segment is depressed in leads II, III, aVF. Clinical impression: Abnormal EKG without significant change. Interpreted by me. Reviewed by me. Administered Medications: 13:15 Drug: NS 0.9% 1000 ml Route: IV; Rate: 1 bolus; Site: right antecubital; jd3 14:28 Drug: Potassium Chloride 20 mEq Route: IV; Rate: per protocol; Site: right antecubital; [facility] 14:28 Drug: Potassium Effervescent Tablet 25 mEq Route: PO; jd3 14:28 Drug: Potassium Chloride 20 mEq Route: IV; Rate: per protocol; Site: right antecubital; jd3 14:28 Drug: NS 0.9% with KCl 20 mEq/L 1000 ml Route: IV; Rate: 125 ml/hr; Site: right [facility] antecubital; 14:28 Drug: Pepcid 20 mg Route: IVP; Site: right antecubital; jd3 Disposition: 02/08/20 14:04 Hospitalization ordered by Cecil Merlos for Inpatient Admission. Preliminary diagnosis are Weakness, Hypokalemia, Hypomagnesemia, Nausea, Diarrhea, unspecified, Dehydration. - Bed requested for Telemetry/MedSurg (Inpatient). - Status is Inpatient Admission. aj1 - Condition is Fair. - Problem is new. - Symptoms have improved. Signatures: Dispatcher [employer] EDMague Sood RN RN aj1 Bre Norwood RN RN dw Darrin Beckwith MD MD cha Davies, Jonathon, RN RN jd3 Corrections: (The following items were deleted from the chart) 16:48 14:04 Hospitalization Ordered by Cecil Merlos for Inpatient Admission. Preliminary diagnosis is Weakness; Hypokalemia; Hypomagnesemia; Nausea; Diarrhea, unspecified; Dehydration. Bed requested for Telemetry/MedSurg (Inpatient). Status is Inpatient Admission. Condition is Fair. Problem is new. Symptoms have improved. [facility] 20:44 16:48 02/08/2020 14:04 Hospitalization Ordered by Cecil Merlos for Inpatient aj1 Admission. Preliminary diagnosis is Weakness; Hypokalemia; Hypomagnesemia; Nausea; Diarrhea, unspecified; Dehydration. Bed requested for Telemetry/MedSurg (Inpatient). Status is Inpatient Admission. Condition is Fair. Problem is new. Symptoms have improved. dw
--- NOTE | 2020-02-08 14:05 | ER ---
Nurse's Notes [facility] Name: Jessa Aranda Age: 70 yrs Sex: Female : 1950 Arrival Date: 02/08/2020 Time: 11:43 Bed 24 [facility] MD: Diagnosis: Weakness;Hypokalemia;Hypomagnesemia;Nausea;Diarrhea, unspecified;Dehydration Presentation: 02/07 12:21 Chief complaint: Patient states: i have end stage colon cancer and i havent been able iw to eat or drink anything for days and i dont feel right. Coronavirus screen: Client denies travel out of the [place] in the last 14 days. Ebola Screen: Patient negative for fever greater than or equal to 101.5 degrees Fahrenheit, and additional compatible Ebola Virus Disease symptoms. 12:21 Method Of Arrival: Wheelchair iw 12:23 Initial Sepsis Screen: Does the patient meet any 2 criteria? No. Patient's initial iw sepsis screen is negative. Risk Assessment: Do you want to hurt yourself or someone else? Patient reports no desire to harm self or others. Onset of symptoms is unknown. 12:23 Acuity: JAVON 3 iw 13:41 Initial Sepsis Screen: Does the patient have a suspected source of infection? No. jd3 Patient's initial sepsis screen is negative. Historical: - PMHx: 13:42 chemo treatment for colon cancer; jd3 - PSHx: 13:42 partial hysterectomy; jd3 - Immunization history:: Adult Immunizations unknown. - Social history:: Smoking status: unknown. - Family history:: not pertinent. Screenin:41 Abuse screen: Denies threats or abuse. Nutritional screening: No deficits noted. jd3 Tuberculosis screening: No symptoms or risk factors identified. Fall Risk Ambulatory Aid- None/Bed Rest/Nurse Assist (0 pts). Gait- Normal/Bed Rest/Wheelchair (0 pts) Mental Status- Oriented to own ability (0 pts). Total Garland Fall Scale indicates No Risk (0-24 pts). Assessment: 13:15 General: Appears uncomfortable, slender, malnourished, Behavior is calm, cooperative, jd3 appropriate for age, Reports fatigue for 2-3 days. Pain: Denies pain. Neuro: Level of Consciousness is awake, alert, obeys commands, Oriented to person, place, time, situation. Cardiovascular: Denies chest pain, Capillary refill < 3 seconds Patient's skin is warm and dry. Rhythm is regular. Respiratory: Airway is patent Respiratory effort is even, unlabored, Respiratory pattern is regular, symmetrical, Denies cough, shortness of breath. GI: No signs and/or symptoms were reported involving the gastrointestinal system. Patient currently denies constipation, diarrhea, nausea, vomiting. : No signs and/or symptoms were reported regarding the genitourinary system. EENT: No signs and/or symptoms were reported regarding the EENT system. Derm: Skin is intact, Skin is dry, Skin is normal, Skin temperature is warm. Musculoskeletal: Circulation, motion, and sensation intact. Range of motion: intact in all extremities. 13:44 Reassessment: No changes from previously documented assessment. Patient and/or family jd3 updated on plan of care and expected duration. Pain level reassessed. Patient is alert, oriented x 3, equal unlabored respirations, skin warm/dry/pink. 14:41 Reassessment: Patient and/or family updated on plan of care and expected duration. Pain jd3 level reassessed. Patient is alert, oriented x 3, equal unlabored respirations, skin warm/dry/pink. admitting provider at bedside Patient denies pain at this time. 15:10 Reassessment: Patient appears in no apparent distress at this time. Patient and/or jd3 family updated on plan of care and expected duration. Pain level reassessed. Patient is alert, oriented x 3, equal unlabored respirations, skin warm/dry/pink. 16:01 Reassessment: Patient and/or family updated on plan of care and expected duration. Pain aj1 level reassessed. General: Appears in no apparent distress. comfortable, Behavior is calm, cooperative, appropriate for age. Pain: Denies pain. Neuro: Level of Consciousness is awake, alert, obeys commands, Oriented to person, place, time, situation, Moves all extremities. Speech is normal, Facial symmetry appears normal. Cardiovascular: Patient's skin is warm and dry. Respiratory: Airway is patent Respiratory effort is even, unlabored, Respiratory pattern is regular, symmetrical. Derm: Skin is pink, warm \T\ dry. normal. Musculoskeletal: Circulation, motion, and sensation intact. 17:29 Reassessment: Patient appears in no apparent distress at this time. No changes from aj1 previously documented assessment. Patient and/or family updated on plan of care and expected duration. Pain level reassessed. Patient is alert, oriented x 3, equal unlabored respirations, skin warm/dry/pink. 17:39 Reassessment: Attempted to call report to 2nd floor, receiving nurse just received ajWilma another patient and will be unable to accept another new patient for at least 30 minutes per AIDA Tipton on 2nd floor. supervisor bindery aware. 18:18 Reassessment: Attempted to call report to 2nd floor, spoke to charge nurse Danuta, noah RN, who states they are unable to accept the patient until after shift change. 18:30 Reassessment: Patient appears in no apparent distress at this time. No changes from aj1 previously documented assessment. Patient and/or family updated on plan of care and expected duration. Pain level reassessed. Patient is alert, oriented x 3, equal unlabored respirations, skin warm/dry/pink. 19:30 Reassessment: Patient appears in no apparent distress at this time. No changes from aj1 previously documented assessment. Patient and/or family updated on plan of care and expected duration. Pain level reassessed. Patient is alert, oriented x 3, equal unlabored respirations, skin warm/dry/pink. Vital Signs: 12:23 BP 87 / 64; Pulse 89; Resp 18; Temp 97.4; Pulse Ox 99% on R/A; Weight 33.57 kg (R); iw Height 5 ft. 4 in. (162.56 cm); Pain 5/10; 13:41 BP 92 / 62; Pulse 78; Resp 18 S; Pulse Ox 100% on R/A; jd3 14:41 BP 94 / 67; Pulse 67; Resp 17 S; Pulse Ox 100% on R/A; jd3 15:10 BP 98 / 67; Pulse 60; Resp 16 S; Pulse Ox 100% on R/A; jd3 16:02 BP 116 / 70; Pulse 61; Resp 18; Pulse Ox 100% on R/A; aj1 17:30 BP 94 / 65; Pulse 84; Resp 18; Pulse Ox 100% on R/A; aj1 19:01 BP 98 / 66; Pulse 61; Resp 18; Pulse Ox 100% on R/A; aj1 20:08 BP 107 / 65; Pulse 60; Resp 18; Pulse Ox 97% on R/A; aj1 12:23 Body Mass Index 12.70 (33.57 kg, 162.56 cm) ED Course: 11:43 Patient arrived in ED. ag5 12:12 Darrin Beckwith MD is Attending Physician. dante 12:24 Triage completed. iw 12:35 Gilson Taylor, AIDA is Primary Nurse. jd3 12:56 Inserted saline lock: 22 gauge in right antecubital area, using aseptic technique. mt 13:04 XRAY Chest (1 view) In Process Unspecified. EDMS 13:41 Patient has correct armband on for positive identification. Bed in low position. Call jd3 light in reach. Side rails up X2. night monitor on. Pulse ox on. NIBP on. 13:44 Arm band placed on. jd3 14:03 Cecil Merlos is Hospitalizing Provider. dante 20:09 No provider procedures requiring assistance completed. Patient admitted, IV remains in aj1 place. 20:09 Report given to AIDA Lawson on 2nd floor. aj1 Administered Medications: 13:15 Drug: NS 0.9% 1000 ml Route: IV; Rate: 1 bolus; Site: right antecubital; jd3 14:28 Drug: Potassium Chloride 20 mEq Route: IV; Rate: per protocol; Site: right antecubital; jd3 14:28 Drug: Potassium Effervescent Tablet 25 mEq Route: PO; jd3 14:28 Drug: Potassium Chloride 20 mEq Route: IV; Rate: per protocol; Site: right antecubital; jd3 14:28 Drug: NS 0.9% with KCl 20 mEq/L 1000 ml Route: IV; Rate: 125 ml/hr; Site: right jd3 antecubital; 14:28 Drug: Pepcid 20 mg Route: IVP; Site: right antecubital; jd3 Outcome: 14:04 Decision to Hospitalize by Provider. dante 20:43 Admitted to Med/surg accompanied by tech, via stretcher, with chart. aj1 20:43 Condition: stable 20:43 Discharge instructions given to patient, Instructed on the need for admit, Demonstrated understanding of instructions. 20:44 Patient left the ED. aj1 Signatures: Dispatcher [employer] EDMague Sood RN RN aj1 Darrin Beckwith MD MD cha Williams, Irene, RN Karyn Sethi mt, Jonathon, RN RN jd3 Ishan, Won ag5 Corrections: (The following items were deleted from the chart) 14:48 14:48 NS 0.9% with KCl 20 mEq/L 1000 ml IV at 125 ml/hr in right antecubital jd3 jd3 14:48 14:48 Potassium Chloride 20 mEq IV at per protocol in right antecubital jd3 jd3 14:48 14:48 Potassium Effervescent Tablet 25 mEq PO jd3 jd3
[2020-02-08] MEDS ORDERED: POTASSIUM 25 MEQ EFFERV TAB ONE (14:26)
[2020-02-08] MEDS ORDERED: NS KCL 20MEQ 1,000 ML IV ONE (14:27)
[2020-02-08] MEDS ORDERED: FAMOTIDINE 20 MG/2 ML VIAL IV ONE (14:27)
[2020-02-08] MEDS ORDERED: KCL 20 MEQ/100 mL IVPB 40 MEQ/200 ML BAG IV ONE ×2 (14:27→22:08)
--- NOTE | 2020-02-08 15:42 | P.HP ---
Certification for Inpatient Patient admitted to: Observation With expected LOS: <2 Midnights Practitioner: I am a practitioner with admitting privileges, knowledge of patient current condition, hospital course, and medical plan of care. Services: Services provided to patient in accordance with Admission requirements found in Title 42 Section 412.3 of the Code of Federal Regulations Patient History Date of Service: 02/08/20 Reason for admission: Generalized weakness History of Present Illness: 70-year-old woman with a history colon cancer, status post diverting colostomy, chronic diarrhea on chemotherapy presented emergency department with a complaint of generalized weakness. Her last chemotherapy was 1 week ago. Blood work in the emergency department demonstrated hypokalemia, hyponatremia and hypophosphatemia. Patient was complaining of nausea. She states every food she eat goes right through her and comes out of the colostomy as diarrhea within 20 min. ED physician wishes to admit her for further management. Allergies No Known Allergies Allergy (Unverified 02/08/20 17:37) - Past Medical/Surgical History -: Colon cancer -: Tobacco use -: Colectomy and colostomy -: Port-A-Cath placement - Family History Brother -: Cancer (Bone) - Social History Smoking Status: Current every day smoker Alcohol use: No CD- Drugs: No Review of Systems Other: Patient denied any fever or dysuria or urinary frequency. She denied any abdominal pain. Except as documented, all other systems reviewed and negative. Physical Examination - Physical Exam General: Alert, In no apparent distress, Cachectic HEENT: Normocephalic, Mucous membr. moist/pink Neck: Supple, JVD not distended Respiratory: Clear to auscultation bilaterally, Normal air movement Cardiovascular: No edema, Regular rate/rhythm, Normal S1 S2 Capillary refill: <2 Seconds Gastrointestinal: Normal bowel sounds, Soft and benign, Non-distended, No tenderness, Other (Colostomy) Musculoskeletal: No swelling, No erythema Integumentary: No rashes, No tenderness/swelling Neurological: Normal speech, Normal strength at 5/5 x4 extr - Studies Laboratory Data (last 24 hrs) 02/08/20 12:58: Phosphorus 1.6 L 02/08/20 12:58: PT 12.3, INR 1.04 02/08/20 12:58: WBC 2.0 L, Hgb 12.9, Hct 39.0, Plt Count 142 L 02/08/20 12:58: Sodium 133 L, Potassium 2.6 L*, BUN 22 H, Creatinine 0.83, Glucose 108 H, Magnesium 2.2, Total Bilirubin 0.6, AST 14 L, ALT 14, Alkaline Phosphatase 164 H, Lipase 77 Assessment and Plan - Problems (Diagnosis) (1) Hypokalemia Current Visit: Yes Status: Acute (2) Hypophosphatemia Current Visit: Yes Status: Acute (3) Chronic diarrhea Current Visit: Yes Status: Acute (4) Colon cancer Current Visit: Yes Status: Acute (5) Cancer cachexia Current Visit: Yes Status: Acute - Plan Place under observation. Rehydrated with D5 normal saline Potassium replacement IV. Replace phosphorus IV. Monitor renal function and electrolytes. Dietitian consult. Small frequent high-calorie feeding recommended. Smoking cessation advised. - Advance Directives Does patient have a Living Will: No Does patient have a Durable POA for Healthcare: No
[2020-02-08 17:51] LABS: Blood Morphology Comment NOTED (NOT SEEN); Ovalocytes 1+; Platelet Estimate DECR; Poikilocytosis 1+
[2020-02-08] MEDS ORDERED: ONDANSETRON 4 MG/2 ML VIAL IV PRN (20:19)
[2020-02-08] MEDS: D5 0.9 NS 1,000 ML with POTASSIUM CL 40 MEQ IV SCH ×2 (20:19)
[2020-02-08] MEDS ORDERED: ACETAMINOPHEN 500 MG TAB PO PRN (20:19)
[2020-02-08 21:50] VITALS: BMI 12.2
[2020-02-08] MEDS ORDERED: D5W 1,000 ML IV ONE (22:07)
[2020-02-08 23:45] VITALS: O2SAT 100
[2020-02-09 05:27] LABS: Basophils % 0.5 % (0-1.3); Hematocrit 30.5 % (36.0-45.0); Lymphocytes % 26.9 % (15.3-44.8); MPV 7.6 fL (7.6-11.3); RBC Red Blood Cell Count 3.87 M/uL (3.86-4.86)
[2020-02-09 06:14] LABS: BUN Blood Urea Nitrogen 14 mg/dL (7-18); Bicarbonate 24 mmol/L (21-32); Glucose Level 133 mg/dL (74-106); Magnesium 1.9 mg/dL (1.8-2.4); Phosphorus 0.4 mg/dL (2.5-4.9); Potassium 4.2 mmol/L (3.5-5.1); Sodium Level 132 mmol/L (136-145)
[2020-02-09] MEDS ORDERED: POTASSIUM PHOS 30 MM in NA CHLORIDE 0.9% 500 ML IV ONE (06:34)
[2020-02-09] MEDS: D5 0.9 NS 1,000 ML with POTASSIUM CL 40 MEQ IV SCH ×2 (08:15)
[2020-02-09] MEDS ORDERED: ENOXAPARIN 40 MG/0.4 ML SQ SCH (09:00)
[2020-02-09] MEDS ORDERED: CALCIUM GLUC 10% INJ 9.3 MEQ in NA CHLORIDE 0.9% 100 ML IV ONE (09:00)
--- NOTE | 2020-02-09 15:42 | P.DS ---
Admission Date: 02/08/20 Discharge Date: 02/09/20 Disposition: ROUTINE DISCHARGE Discharge Condition: FAIR Reason for Admission: Generalized weakness - Problems (1) Hypokalemia Current Visit: Yes Status: Acute (2) Hypophosphatemia Current Visit: Yes Status: Acute (3) Chronic diarrhea Current Visit: Yes Status: Acute (4) Colon cancer Current Visit: Yes Status: Acute (5) Cancer cachexia Current Visit: Yes Status: Acute Brief History of Present Illness: 70-year-old woman with a history colon cancer, status post diverting colostomy, chronic diarrhea on chemotherapy presented emergency department with a complaint of generalized weakness. Her last chemotherapy was 1 week ago. Blood work in the emergency department demonstrated hypokalemia, hyponatremia and hypophosphatemia. Patient was complaining of nausea. She states every food she eat goes right through her and comes out of the colostomy as diarrhea within 20 min. The patient was hospitalized for further management. Hospital Course: Patient hospitalized to the medical floor and treated with supportive measures with IV hydration. Hypokalemia was corrected by IV supplementation. She also had hypophosphatemia and hypocalcemia and received phosphorus and calcium replacements. She has chronic diarrhea which is believed to cause GI loss of these ions. Patient is prescribed neutral phos K to continue supplementation for the phosphorus and potassium as outpatient. She was also seen by dietitian and patient instructed to eat small frequent high-calorie diet. Patient is discharged and prescribed nutritional supplementations, as well as carcinoma vitamin-D supplements. Her vital signs are stable, denies any symptoms apart from watery colostomy output. Vital Signs/Physical Exam: Temp Pulse Resp BP Pulse Ox 98.2 F 66 18 97/58 L 99 02/09/20 12:00 02/09/20 12:00 02/09/20 12:00 02/09/20 12:00 02/09/20 12:00 General: Alert, Cachectic HEENT: Mucous membr. moist/pink Neck: Supple, JVD not distended Respiratory: Clear to auscultation bilaterally, Normal air movement Cardiovascular: No edema, Regular rate/rhythm, Normal S1 S2 Gastrointestinal: Normal bowel sounds, Soft and benign, Non-distended, No tenderness, Other (Colostomy) Musculoskeletal: No swelling, No tenderness Integumentary: No rashes, No erythema Neurological: Other (Nonfocal) Laboratory Data at Discharge: WBC 3.5 K/uL (4.3-10.9) L D 02/09/20 05:05 Hgb 10.3 g/dL (12.0-15.0) L D 02/09/20 05:05 Hct 30.5 % (36.0-45.0) L D 02/09/20 05:05 Plt Count 126 K/uL (152-406) L 02/09/20 05:05 PT 12.3 SECONDS (9.5-12.5) 02/08/20 12:58 INR 1.04 02/08/20 12:58 Sodium 132 mmol/L (136-145) L 02/09/20 05:05 Potassium 4.2 mmol/L (3.5-5.1) 02/09/20 05:05 BUN 14 mg/dL (7-18) 02/09/20 05:05 Creatinine 0.55 mg/dL (0.55-1.3) 02/09/20 05:05 Glucose 133 mg/dL (74-106) H 02/09/20 05:05 Phosphorus 1.7 mg/dL (2.5-4.9) L D 02/09/20 13:59 Magnesium 1.9 mg/dL (1.8-2.4) 02/09/20 05:05 Total Bilirubin 0.6 mg/dL (0.2-1.0) 02/08/20 12:58 AST 14 U/L (15-37) L 02/08/20 12:58 ALT 14 U/L (12-78) 02/08/20 12:58 Alkaline Phosphatase 164 U/L (45-117) H 02/08/20 12:58 Lipase 77 U/L (73-393) 02/08/20 12:58 Home Medications: Calcium Carbonate/Vitamin D3 [Calcium 500 + Vit D 200 Caplet] 1 each PO BID #60 tablet 02/09/20 Ensure High Protein 237 ml PO TID #90 can 02/09/20 Potassium Phos,H-Ehfit-J-Basic [Fuuhtg-Pwyn-S] 1 each PO DAILY #30 packet 02/09/20 Zinc Sulfate [Zinc Sulfate*] 220 mg PO BID #60 cap 02/09/20 New Medications: Calcium Carbonate/Vitamin D3 [Calcium 500 + Vit D 200 Caplet] 1 each PO BID #60 tablet Ensure High Protein 237 ml PO TID #90 can Potassium Phos,G-Ugdhq-X-Basic [Mrvcvf-Jwoi-E] 1 each PO DAILY #30 packet Zinc Sulfate [Zinc Sulfate*] 220 mg PO BID #60 cap Diet: Regular Activity: Ad rachel Followup: Unknown,U [Primary Care Provider] - 1-2 Weeks
[2020-02-09 17:15] VITALS: BP 94/61; TEMP 97.7
[2020-02-09] MEDS ORDERED: ENSURE HIGH PROTEIN 237 ML CAN PO SCH (21:00)
== END 2020-02-09 16:46 | disposition home or self-care (01) ==
LOC: ER 11:41 → ERHOLD 15:32 → 2ND 20:16
PROVIDERS: ADMIT Internal Medicine; ATTEND Internal Medicine
DX: R53.1 Weakness (principal); E87.6 Hypokalemia; E83.39 Other disorders of phosphorus metabolism; R19.7 Diarrhea, unspecified; C18.9 Malignant neoplasm of colon, unspecified; R64 Cachexia; Z20.828 Contact with and (suspected) exposure to other viral communicable diseases; Z93.3 Colostomy status; Z92.21 Personal history of antineoplastic chemotherapy; E87.1 Hypo-osmolality and hyponatremia; E83.51 Hypocalcemia; F17.200 Nicotine dependence, unspecified, uncomplicated; R94.31 Abnormal electrocardiogram [ECG] [EKG]
CPT/HCPCS: 93005; 85025 ×2; 80048 ×2; 36415 ×2; 83735 ×2; 84100 ×3; 84132; 85610; 80076; 84484; 83690; 83880; 71045; 96375; 96374; 99285; U0002; J0610; J3480 ×5; J1650; J7042 ×2; J7040; J7030; G0378 ×3